=== PATIENT | male | born 1975 | race Caucasian/White ===

== ENCOUNTER 2021-03-15 16:01 | Outpatient (REF) | payer BC, SELFPAY ==
[2021-03-20 16:36] LABS: Testosterone, Free 49.4 pg/mL (35.0-155.0); Testosterone, Total 402 ng/dL (250-1100)
== END 2021-03-15 16:02 | disposition home or self-care (01) ==
LOC: HO.LAB 16:01
PROVIDERS: PCP Internal Medicine; Visit Provider Internal Medicine
DX: E34.9 Endocrine disorder, unspecified (principal)
CPT/HCPCS: 36415; 84402; 84403

== ENCOUNTER → 2021-03-24 15:12 | Outpatient (BNVA) | payer BC, SELFPAY | PROVIDERS: PCP Nurse Practitioner Family; Visit Provider Urology ==

== ENCOUNTER 2021-07-27 06:12 | Outpatient (REF) | payer BC, SELFPAY ==
[2021-07-27 11:53] LABS: Appearance Urine CLEAR; Color Urine YELLOW; Glucose Urine UA NEG (NEG); Leukocyte Esterase Urine NEG (NEG); Nitrite Urine NEG (NEG); Specific Gravity - Urine 1.025 (1.005-1.025); Urine Blood NEG (NEG); Urine Ketones NEG (NEG); Urine Protein NEG (NEG-TRACE)
[2021-07-27 12:08] LABS: Alanine Aminotransferase 32 U/L (0-40); Albumin Level 4.2 g/dL (3.5-5.0); Alkaline Phosphatase 91 U/L (39-117); Anion Gap 11 (12-20); Aspartate Amino Transferase 26 U/L (5-37); Bilirubin Total 0.4 mg/dL (0.0-1.0); Blood Urea Nitrogen 8 mg/dL (9-16); Calcium 8.6 mg/dL (8.4-10.2); Carbon Dioxide 24 mmol/L (22-29); Chloride 109 mmol/L (96-108); Cholesterol 130 mg/dL; Estimated Glomerular Filt Rate > 60; Glucose Fasting 90 mg/dL (60-99); HDL Cholesterol 41 mg/dL; LDL Cholesterol Calculated 75 mg/dl; Potassium 4.1 mmol/L (3.3-5.1); Sodium 140 mmol/L (135-145); Total Protein 6.4 g/dL (6.5-8.0); Triglycerides 71 mg/dL
[2021-07-27 12:13] LABS: TSH reflex Free T4 1.77 uIU/mL (0.32-4.0)
[2021-07-30 14:27] LABS: Testosterone, Total 456 ng/dL (250-1100)
== END 2021-07-27 06:13 | disposition home or self-care (01) ==
LOC: HO.HMGCLDS 06:12
PROVIDERS: Urology; PCP Nurse Practitioner Family; Visit Provider Nurse Practitioner Family
DX: Z00.00 Encounter for general adult medical examination without abnormal findings (principal); E11.9 Type 2 diabetes mellitus without complications; E29.1 Testicular hypofunction
CPT/HCPCS: 36415; 80053; 80061; 81003; 84403; 84443

== ENCOUNTER → 2021-09-23 15:00 | Outpatient (BNVA) | payer BC, SELFPAY | PROVIDERS: PCP Nurse Practitioner Family; Visit Provider Urology ==

== ENCOUNTER → 2021-09-30 11:27 | Outpatient (BNVA) | payer BC, SELFPAY | PROVIDERS: PCP Nurse Practitioner Family; Visit Provider Nurse Practitioner Psychiatric/Mental Health | DX: F11.20 Opioid dependence, uncomplicated (principal) | CPT/HCPCS: 80305 ==

== ENCOUNTER → 2021-10-14 15:15 | Outpatient (BNVA) | payer BC, SELFPAY | PROVIDERS: PCP Nurse Practitioner Family; Visit Provider Nurse Practitioner Psychiatric/Mental Health | DX: F11.20 Opioid dependence, uncomplicated (principal); E66.9 Obesity, unspecified; Z68.30 Body mass index [BMI] 30.0-30.9, adult; F17.210 Nicotine dependence, cigarettes, uncomplicated | CPT/HCPCS: 80305 ==

== ENCOUNTER → 2021-10-28 16:29 | Outpatient (BNVA) | payer BC, SELFPAY | PROVIDERS: Visit Provider Nurse Practitioner Psychiatric/Mental Health | DX: Z13.89 Encounter for screening for other disorder (principal) ==

== ENCOUNTER 2021-11-09 06:09 | Outpatient (REF) | payer BC, SELFPAY ==
[2021-11-09 11:33] LABS: Appearance Urine CLEAR; Color Urine STRAW; Glucose Urine UA NEG (NEG); Leukocyte Esterase Urine NEG (NEG); Nitrite Urine NEG (NEG); Specific Gravity - Urine <= 1.005 (1.005-1.025); Urine Blood NEG (NEG); Urine Ketones NEG (NEG); Urine Protein NEG (NEG-TRACE)
[2021-11-09 11:44] LABS: Hematocrit 46.1 % (42.0-52.0); Hemoglobin 15.3 g/dl (14.0-18.0); Mean Corpuscular HGB Conc 33.2 g/dl (31.0-36.0); Mean Corpuscular Hemoglobin 29.9 pg (27.0-33.0); Mean Platelet Volume 10.6 fL (9.4-12.4); Platelet Count 254 X10*3/uL (160-400); Red Blood Count 5.12 X10*6/uL (4.60-5.80); Red Cell Distribution Width 12.3 % (11.0-16.0); White Blood Count 4.5 X10*3/uL (4.8-10.8)
[2021-11-09 12:11] LABS: TSH reflex Free T4 1.95 uIU/mL (0.32-4.0)
[2021-11-09 12:15] LABS: Alanine Aminotransferase 32 U/L (0-40); Albumin Level 4.3 g/dL (3.5-5.0); Alkaline Phosphatase 75 U/L (39-117); Anion Gap 9 (12-20); Aspartate Amino Transferase 18 U/L (5-37); Bilirubin Total 0.6 mg/dL (0.0-1.0); Blood Urea Nitrogen 8 mg/dL (9-16); Carbon Dioxide 29 mmol/L (22-29); Chloride 110 mmol/L (96-108); Cholesterol 105 mg/dL; Estimated Glomerular Filt Rate > 60; Glucose Fasting 96 mg/dL (60-99); HDL Cholesterol 38 mg/dL; LDL Cholesterol Calculated 58 mg/dl; Potassium 4.5 mmol/L (3.3-5.1); Sodium 143 mmol/L (135-145); Total Protein 6.2 g/dL (6.5-8.0); Triglycerides 45 mg/dL
[2021-11-09 12:17] LABS: Prostate Specific Antigen 0.91 ng/mL (<0.05-4.0)
[2021-11-15 08:51] LABS: Testosterone, Total 781 ng/dL (250-1100)
== END 2021-11-09 06:10 | disposition home or self-care (01) ==
LOC: HO.HMGCLDS 06:09
PROVIDERS: PCP Nurse Practitioner Family; Visit Provider Urology
DX: Z12.5 Encounter for screening for malignant neoplasm of prostate (principal); E29.1 Testicular hypofunction; F11.20 Opioid dependence, uncomplicated; F41.8 Other specified anxiety disorders
CPT/HCPCS: 36415; 80053; 80061; 81003; 84153; 84403; 84443; 85027

== ENCOUNTER → 2021-11-11 10:49 | Outpatient (BNVA) | payer BC, SELFPAY | PROVIDERS: Visit Provider Nurse Practitioner Psychiatric/Mental Health | DX: Z13.89 Encounter for screening for other disorder (principal) ==

== ENCOUNTER → 2021-12-09 16:02 | Outpatient (BNVA) | payer BC, SELFPAY | PROVIDERS: PCP Nurse Practitioner Family; Visit Provider Nurse Practitioner Psychiatric/Mental Health | DX: Z13.89 Encounter for screening for other disorder (principal) ==

== ENCOUNTER → 2022-02-03 15:52 | Outpatient (BNVA) | payer BC, SELFPAY | PROVIDERS: PCP Nurse Practitioner Family; Visit Provider Nurse Practitioner Psychiatric/Mental Health | DX: Z51.81 Encounter for therapeutic drug level monitoring (principal); F11.20 Opioid dependence, uncomplicated | CPT/HCPCS: 80305 ==

== ENCOUNTER 2022-03-25 12:32 | Outpatient (REF) | payer BC, SELFPAY ==
[2022-03-25 13:16] LABS: Hematocrit 46.1 % (42.0-52.0); Hemoglobin 16.2 g/dl (14.0-18.0); Mean Corpuscular HGB Conc 35.1 g/dl (31.0-36.0); Mean Corpuscular Hemoglobin 29.9 pg (27.0-33.0); Mean Corpuscular Volume 85.1 fL (80.0-98.0); Mean Platelet Volume 10.3 fL (9.4-12.4); Platelet Count 269 X10*3/uL (160-400); Red Blood Count 5.42 X10*6/uL (4.60-5.80); Red Cell Distribution Width 12.1 % (11.0-16.0)
[2022-03-25 14:15] LABS: Prostate Specific Antigen 1.29 ng/mL (<0.05-4.0)
[2022-03-29 21:57] LABS: Testosterone, Total 865 ng/dL (250-1100)
== END 2022-03-25 12:33 | disposition home or self-care (01) ==
LOC: HO.LAB 12:32
PROVIDERS: PCP Nurse Practitioner Family; Visit Provider Urology
DX: E29.1 Testicular hypofunction (principal); Z12.5 Encounter for screening for malignant neoplasm of prostate
CPT/HCPCS: 36415; 84153; 84403; 85027

== ENCOUNTER 2022-04-07 15:34 | Outpatient (AMB) | payer BC, SELFPAY ==
--- NOTE | 2022-04-07 15:37 | A.OFFVIS_ITS ---
Intake Intake Visit Reasons: 6 mth follow up with labs (SET) Intake Note: Patient is present for labs follow up Data Systems Manager Required: No Accompanied by: Self / Same As Patient Allergies No Known Allergies Allergy (Verified 09/21/23 17:08) Medication List - Last Reconciled 04/07/22 by Jorge A Benoit MD buprenorphine-naloxone 2-0.5 mg (Suboxone) 1 film buccal DAILY buprenorphine-naloxone 8-2 mg (Suboxone) 1 film sublingual DAILY clonazepam 1 mg PO DAILY PRN 30 days insulin syringe-needle U-100 (BD Insulin Syringe) As directed needle (disp) 22 G (BD Regular Bevel [place]) As directed needle (disp) 25 gauge (BD Regular Bevel [place]) As directed - for testosterone subcutaneous injection syringe (disposable) (BD Luer-Alejandra Syringe) Testosterone injection weekly testosterone cypionate 100 mg (0.5 mL) subcut QWEEK 28 days HPI HPI Comments History of Present Illness Details Anish is a pleasant male. He is a patient of Dr Dias. He is seen for the following urologic conditions - hypogonadism Telemedicine evaluation Doximity adryan 15 minute consultation Had switched to subcutaneous testosterone Last lab value at appropriate target Continue to use weekly Check labs in 6 months Hypogonadism Longstanding - resume secondary to oral pain medication usage Insurance will not cover AndRosemary Has been using a testosterone IM every 2 weeks Discussed switching to subcutaneous every week to normalize values - aim for weekly subcu He would like to do this Prescription provided Laboratories - T 400, 08/03 T 456 , 04/04 T 800 1.3 46 Follow-up in 6 months with labs [facility] Medical History Adrenal adenoma History of arthroplasty of finger (~2016) Hypotestosteronism Obesity (BMI 30-39.9) Osteoarthritis Smoker Surgical History H/O arthroscopy of left knee (~2010) History of total adrenalectomy Family History Father No problems noted. Mother No problems noted. 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 Cognitive needs: No Hearing needs: No Vision needs: No Review of Systems Const All systems reviewed & are unremarkable except as noted in HPI and below Reports no additional complaints Resp Reports no additional complaints GI Reports no additional complaints Reports as per HPI Musc Reports no additional complaints Physical Exam Telemedicine evaluation Appropriate responses Regular breathing rate and rhythm HEENT Head: Yes normal to inspection Ears: hearing grossly normal bilaterally Eyes General: appearance normal, both eyes and all related structures Neck Neck: Yes normal visual inspection Chest Chest palpation & inspection: normal inspection of the chest Resp Effort & Inspection: normal respiratory effort and able to speak in complete sentences Assessment & Plan Assessment & Plan (1) Hypogonadism in male: Code(s): E29.1 - Testicular hypofunction Plan Six-month follow-up Orders: Orders Testosterone, Total 6 Months E29.1 - Testicular hypofunction Prostate Specific Antigen 6 Months E29.1 - Testicular hypofunction Hematocrit 6 Months E29.1 - Testicular hypofunction Patient Instructions: Imaging studies, laboratory and physical exam results were discussed and reviewed in detail. No major barriers to patient understanding were identified. An opportunity to ask questions regarding the treatment plan was provided. All questions were answered. The patient expressed understanding and agreement with the above treatment plan. The patient is aware they should contact our office by phone for worsening of their current condition or the appearance of new urologic symptoms. Compliance is encouraged with any medications and followup testing that is ordered. It is a privilege to participate in the urologic care of your patient. If you have any questions or concerns regarding treatment for the above conditions, or other urologic issues, please do not hesitate to contact me. The office telephone contact is [phone]. This note is constructed using voice recognition software. While every effort has been made to ensure accuracy connie scratcher errors may have been included. Yours sincerely, Dr Jorge A Benoit MD, [facility] - Urology Providers of Expert, Compassionate Care for the Genitourinary System Telehealth Telehealth Location of provider rendering services: practice address Location of patient: address on file Patient Identification confirmed using: Name, : Yes Telehealth method: voice only Patient verbally consented to treatment: Yes Patient verbally consented to billing insurance company: Yes Patient informed of any privacy concerns related to visit: Yes Coding Level of Care Code Tele Est Pt Level 3 (21648) Diagnoses Hypogonadism in male E29.1
== END 2022-04-07 15:51 | disposition home or self-care (01) ==
LOC: HO.HUSH 15:34
PROVIDERS: PCP Nurse Practitioner Family; Visit Provider Urology
DX: E29.1 Testicular hypofunction (principal)
CPT/HCPCS: 99499

== ENCOUNTER → 2022-05-26 08:59 | Outpatient (BNVA) | payer BC, SELFPAY | PROVIDERS: PCP Nurse Practitioner Family; Visit Provider Nurse Practitioner Psychiatric/Mental Health | DX: Z51.81 Encounter for therapeutic drug level monitoring (principal); F11.20 Opioid dependence, uncomplicated | CPT/HCPCS: 80305 ==

== ENCOUNTER → 2022-06-30 09:00 | Outpatient (BNVA) | payer BC, SELFPAY | PROVIDERS: PCP Nurse Practitioner Family; Visit Provider Nurse Practitioner Psychiatric/Mental Health | DX: F11.288 Opioid dependence with other opioid-induced disorder (principal); F17.210 Nicotine dependence, cigarettes, uncomplicated; Z51.81 Encounter for therapeutic drug level monitoring | CPT/HCPCS: 80305 ==

== ENCOUNTER → 2022-08-11 09:03 | Outpatient (BNVA) | payer BC, SELFPAY | PROVIDERS: PCP Nurse Practitioner Family; Visit Provider Nurse Practitioner Psychiatric/Mental Health | DX: F11.20 Opioid dependence, uncomplicated (principal) ==

== ENCOUNTER → 2022-08-31 09:00 | Outpatient (BNVA) | payer BC, SELFPAY | PROVIDERS: PCP Nurse Practitioner Family; Visit Provider Nurse Practitioner Psychiatric/Mental Health | DX: Z13.89 Encounter for screening for other disorder (principal) ==

== ENCOUNTER 2022-10-12 08:53 | Outpatient (REF) | payer BC, SELFPAY ==
[2022-10-12 09:44] LABS: MANUAL DIFF FLAG NO
[2022-10-12 10:46] LABS: Basophils Percent Auto 0.3 % (0-2); Hematocrit 45.2 % (42.0-52.0); Hemoglobin 15.9 g/dl (14.0-18.0); Imm Gran Abs Auto 0.02 X10*3/uL (0.00-0.03); Imm Gran Pct Auto 0.3 % (0.0-0.4); Lymphocytes Percent Auto 17.1 % (20-40); Mean Corpuscular HGB Conc 35.2 g/dl (31.0-36.0); Mean Corpuscular Hemoglobin 29.4 pg (27.0-33.0); Mean Corpuscular Volume 83.5 fL (80.0-98.0); Mean Platelet Volume 10.7 fL (9.4-12.4); Monocytes Absolute Auto 0.4 X10*3/uL (0.1-1.2); Monocytes Percent Auto 6.2 % (2-11); Neutrophils Absolute Auto 4.4 x10*3/uL (2.0-8.3); Neutrophils Percent Auto 76.1 % (45-73); Platelet Count 245 X10*3/uL (160-400); Red Blood Count 5.41 X10*6/uL (4.60-5.80); Red Cell Distribution Width 12.1 % (11.0-16.0); White Blood Count 5.8 X10*3/uL (4.8-10.8)
[2022-10-12 10:47] LABS: Appearance Urine Clear; Color Urine Yellow; Glucose Urine UA Negative (Negative); Leukocyte Esterase Urine Negative (Negative); Nitrite Urine Negative (Negative); Specific Gravity - Urine <= 1.005 (1.005-1.025); Urine Blood Negative (Negative); Urine Ketones Negative (Negative); Urine Protein Negative (Neg-Trace)
[2022-10-12 11:47] LABS: TSH reflex Free T4 1.37 uIU/mL (0.32-4.0)
[2022-10-12 12:05] LABS: Alanine Aminotransferase 31 U/L (0-40); Albumin Level 4.5 g/dL (3.5-5.0); Alkaline Phosphatase 86 U/L (39-117); Anion Gap 12 (12-20); Aspartate Amino Transferase 22 U/L (5-37); Bilirubin Total 0.5 mg/dL (0.0-1.0); Blood Urea Nitrogen 14 mg/dL (9-16); Calcium 9.2 mg/dL (8.4-10.2); Carbon Dioxide 24 mmol/L (22-29); Chloride 110 mmol/L (96-108); Cholesterol 137 mg/dL; Estimated Glomerular Filt Rate > 60; Glucose Fasting 100 mg/dL (60-99); HDL Cholesterol 45 mg/dL; LDL Cholesterol Calculated 85 mg/dl; Potassium 4.6 mmol/L (3.3-5.1); Sodium 141 mmol/L (135-145); Total Protein 6.7 g/dL (6.5-8.0); Triglycerides 37 mg/dL
[2022-10-12 12:12] LABS: Prostate Specific Antigen 0.88 ng/mL (<0.05-4.0)
[2022-10-18 18:18] LABS: Testosterone, Total 602 ng/dL (250-1100)
== END 2022-10-12 08:54 | disposition home or self-care (01) ==
LOC: HO.LAB 08:53
PROVIDERS: PCP Nurse Practitioner Family; Visit Provider Urology
DX: E29.1 Testicular hypofunction (principal); F41.9 Anxiety disorder, unspecified; F11.20 Opioid dependence, uncomplicated; Z51.81 Encounter for therapeutic drug level monitoring; Z12.5 Encounter for screening for malignant neoplasm of prostate; E78.5 Hyperlipidemia, unspecified
CPT/HCPCS: 36415; 80053; 80061; 80305; 81003; 84153; 84403; 84443; 85025

== ENCOUNTER → 2022-11-10 11:40 | Outpatient (BNVA) | payer BC, SELFPAY | PROVIDERS: PCP Nurse Practitioner Family; Visit Provider Urology | DX: Z13.89 Encounter for screening for other disorder (principal) ==

== ENCOUNTER → 2022-11-18 16:08 | Outpatient (BNVA) | payer BC, SELFPAY | PROVIDERS: PCP Nurse Practitioner Family; Visit Provider Nurse Practitioner Family | DX: Z13.89 Encounter for screening for other disorder (principal) ==

== ENCOUNTER → 2022-12-07 09:01 | Outpatient (BNVA) | payer BC, SELFPAY | PROVIDERS: PCP Nurse Practitioner Family; Visit Provider Nurse Practitioner Psychiatric/Mental Health | DX: Z51.81 Encounter for therapeutic drug level monitoring (principal) ==

== ENCOUNTER → 2023-01-31 09:06 | Outpatient (BNVA) | payer BC, SELFPAY | PROVIDERS: PCP Nurse Practitioner Family; Visit Provider Nurse Practitioner Psychiatric/Mental Health | DX: Z51.81 Encounter for therapeutic drug level monitoring (principal); F11.20 Opioid dependence, uncomplicated | CPT/HCPCS: 80305 ==

== ENCOUNTER 2023-03-27 09:09 | Outpatient (AMB) | payer BC, SELFPAY ==
--- NOTE | 2023-03-27 09:10 | A.OFFVIS_ITS ---
Intake Vital Signs 03/27/23 09:19 BP 136/84 Blood Pressure Location Lt radial Position Sitting Pulse 104 H Pulse Source Pulse Oximeter Pulse Oximetry (%) 95 Oxygen Delivery Method Room Air Comment had 5 hr energy drink Intake Visit Reasons: MAT Visit Intake Note: the patient presents for a mat visit United [place] Attorney Required: No Allergies No Known Allergies Allergy (Verified 03/27/23 09:20) Do you need a note to return to daycare/school/sports/work: No HPI MAT Visit HPI Details Patient presents for treatment follow up Caffeine intake at last visit was reported at 1000mg daily Reports he has reduced to about 700mg. Cut out one 5 hour energy drink and decreased by one scoop in energy drinks. In terms of suboxone reports he has been cutting down the film--does not feel he has been on more than 8mg. Would like next rx to be for 8mg PFSH Medical History Adrenal adenoma History of arthroplasty of finger (~2016) Hypotestosteronism Obesity (BMI 30-39.9) Osteoarthritis Smoker Surgical History H/O arthroscopy of left knee (~2010) History of total adrenalectomy Family History Father No problems noted. Mother No problems noted. 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 Cognitive needs: No Hearing needs: No Vision needs: No Review of Systems Const Reports as per HPI and Reports no additional complaints Physical Exam Vital Signs: Last Vital Signs Pulse 104 H 03/27/23 09:19 BP 136/84 03/27/23 09:19 Pulse Ox 95 03/27/23 09:19 Oxygen Delivery Method Room Air 03/27/23 09:19 Const General: cooperative, healthy appearing, no acute distress and well groomed Psych Thought process: Normal thought process present Thought content: Normal thought content present Insight: Good insight present (Psych) Results AMB 14 Panel Urine Drug Screen Urine Marijuana (THC) Negative Last Edit by Marline Sharma CMA on 03/27/23 09:22 Urine Cocaine Negative Last Edit by Marline Sharma CMA on 03/27/23 09:22 Urine Morphine Negative Last Edit by Marline Sharma CMA on 03/27/23 09:22 Urine Methamphetamine Negative Last Edit by Marline Sharma CMA on 03/27/23 09:22 Urine Amphetamine Negative Last Edit by Marline Sharma CMA on 03/27/23 09:2 2 Urine Benzodiazepine Negative Last Edit by Marline Sharma CMA on 03/27/23 09:22 Urine Barbiturates Negative Last Edit by Marline Sahrma CMA on 03/27/23 09: 22 Urine Methadone Negative Last Edit by Marline Sharma CMA on 03/27/23 09:22 Urine Buprenorphine Positive Last Edit by Marline Sharma CMA on 03/27/23 09 :22 Urine Tricyclic Antidepressant Negative Last Edit by Marline Sharma CMA on 03/27/23 09:22 Urine MDMA Negative Last Edit by Marline Sharma CMA on 03/27/23 09:22 Urine Oxycodone Negative Last Edit by Marline Sharma CMA on 03/27/23 09:22 Urine Phencyclidine Negative Last Edit by Marline Sharma CMA on 03/27/23 09 :22 Urine Propoxyphene Negative Last Edit by Marline Sharma CMA on 03/27/23 09: 22 Results Reviewed Results Reviewed: Laboratory Last Values POC Urine Buprenorphine Positive 03/27/23 09:21 POC Urine Morphine Negative 03/27/23 09:21 POC Urine Oxycodone Negative 03/27/23 09:21 POC Urine Methadone Negative 03/27/23 09:21 POC Urine Propoxyphene Negative 03/27/23 09:21 POC Urine Barbiturates Negative 03/27/23 09:21 POC U Tricyclic Antidpr Negative 03/27/23 09:21 POC Urine PCP Negative 03/27/23 09:21 POC Ur Amphetamines Negative 03/27/23 09:21 POC Ur Methamphetamine Negative 03/27/23 09:21 POC Urine MDMA Negative 03/27/23 09:21 POC Ur Benzodiazepine Negative 03/27/23 09:21 POC Urine Cocaine Negative 03/27/23 09:21 POC Ur Marijuana (THC) Negative 03/27/23 09:21 Assessment & Plan Assessment & Plan (1) Opioid dependence: Code(s): F11.20 - Opioid dependence, uncomplicated Plan: * suboxone dose decreased to 8mg QD * risk reduction discussion related to ongoing caffeine and phenibut use. Goal is to continue decreasing. * follow up 2 months via telehealth Orders: Orders AMB 14 Panel Urine Drug Screen Today Z51.81 - Encounter for therapeutic drug level monitoring Coding Level of Care Code Est Pt Level 4 (62059) Diagnoses Opioid dependence F11.20
[2023-03-27 09:19] VITALS: BP 136/84; PULSE 104; O2SAT 95
== END 2023-03-27 09:52 | disposition home or self-care (01) ==
LOC: HO.HCC 09:09
PROVIDERS: PCP Nurse Practitioner Family; Visit Provider Nurse Practitioner Psychiatric/Mental Health
DX: F11.20 Opioid dependence, uncomplicated (principal); Z51.81 Encounter for therapeutic drug level monitoring
CPT/HCPCS: 99214

== ENCOUNTER → 2023-03-27 09:09 | Outpatient (BNVA) | payer BC, SELFPAY | PROVIDERS: PCP Nurse Practitioner Family; Visit Provider Nurse Practitioner Psychiatric/Mental Health | DX: F11.20 Opioid dependence, uncomplicated (principal); Z51.81 Encounter for therapeutic drug level monitoring; Z79.899 Other long term (current) drug therapy | CPT/HCPCS: 80305 ==

== ENCOUNTER 2023-04-24 16:50 | Outpatient (REF) | payer BC, SELFPAY ==
[2023-04-24 17:25] LABS: Hematocrit 47.8 % (42.0-52.0); Hemoglobin 16.2 g/dl (14.0-18.0); Mean Corpuscular HGB Conc 33.9 g/dl (31.0-36.0); Mean Corpuscular Hemoglobin 29.8 pg (27.0-33.0); Mean Platelet Volume 10.7 fL (9.4-12.4); Platelet Count 283 X10*3/uL (160-400); Red Blood Count 5.43 X10*6/uL (4.60-5.80); Red Cell Distribution Width 12.6 % (11.0-16.0); White Blood Count 8.1 X10*3/uL (4.8-10.8)
[2023-04-24 18:09] LABS: Prostate Specific Antigen 1.26 ng/mL (<0.05-4.0)
[2023-04-29 15:43] LABS: Testosterone, Total 539 ng/dL (250-1100)
== END 2023-04-24 16:51 | disposition home or self-care (01) ==
LOC: HO.LAB 16:50
PROVIDERS: PCP Nurse Practitioner Family; Visit Provider Urology
DX: E29.1 Testicular hypofunction (principal); Z12.5 Encounter for screening for malignant neoplasm of prostate
CPT/HCPCS: 36415; 84153; 84403; 85027

== ENCOUNTER 2023-05-03 15:29 | Outpatient (AMB) | payer BC, SELFPAY ==
--- NOTE | 2023-05-03 15:36 | MHC.OFFVIS ---
Intake Intake Visit Reasons: 6M PSA/CBC/Testosterone(set) Intake Note: Patient is present for Follow Up Urology Med: Testosterone Antibiotic Allergy: None Blood Thinner: None [facility]acy: [facility] Allergies No Known Allergies Allergy (Verified 03/27/23 09:20) HPI HPI Comments History of Present Illness Details Anish is a pleasant male. He is a patient of Dr Dias. He is seen for the following urologic conditions - hypogonadism Weekly injections Target testosterone appropriate Continue therapy Hypogonadism Current dose would 100 mg testosterone weekly subcutaneous Longstanding - presume secondary to oral pain medication usage Insurance will not cover AndroGel Previously used testosterone IM every 2 weeks Laboratories - T 400, 08/03 T 456 , 04/04 T 800 1.3 46, 11/03 T 600 P 0.9 H 45, 05/06 T 540 P 1.3 H 47.8 Follow-up in 6 months with labs PFSH Medical History Adrenal adenoma History of arthroplasty of finger (~2016) Hypotestosteronism Obesity (BMI 30-39.9) Osteoarthritis Smoker Surgical History H/O arthroscopy of left knee (~2010) History of total adrenalectomy Family History Father No problems noted. Mother No problems noted. 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 Cognitive needs: No Hearing needs: No Vision needs: No Review of Systems Const Denies chills and Denies fever(s) Card Reports no additional complaints and Denies syncope Resp Denies cough GI Denies abdominal pain and Denies heartburn Reports as per HPI and Denies change in libido Neuro Denies syncope Psych Denies change in libido Endo Denies change in libido Physical Exam Const General: cooperative, healthy appearing, comfortable and no acute distress Orientation/consciousness: patient oriented x3 HEENT Face and sinus: Yes normal facial exam Mouth: moist mucous membranes Neck Neck: Yes normal visual inspection, Yes full ROM and Yes trachea midline Chest Chest palpation & inspection: normal inspection of the chest Resp Effort & Inspection: normal respiratory effort, able to speak in complete sentences and no respiratory distress GI Inspection: Yes normal to inspection Back/Spine/Pelvis Cervical Spine: normal cervical lordosis Thoracic/Lumbar Spine: thoracic and lumbar spine normal to inspection Skin General skin exam: no rashes or lesions noted Neuro General: patient oriented x3, gait normal, tone normal and moves all extremities Extrem General: Yes normal to inspection and Yes capillary refill normal Assessment & Plan Assessment & Plan (1) Hypogonadism in male: Code(s): E29.1 - Testicular hypofunction Plan Continue q.6 months surveillance labs Patient Instructions: Imaging studies, laboratory and physical exam results were discussed and reviewed in detail. No major barriers to patient understanding were identified. An opportunity to ask questions regarding the treatment plan was provided. All questions were answered. The patient expressed understanding and agreement with the above treatment plan. The patient is aware they should contact our office by phone for worsening of their current condition or the appearance of new urologic symptoms. Compliance is encouraged with any medications and followup testing that is ordered. It is a privilege to participate in the urologic care of your patient. If you have any questions or concerns regarding treatment for the above conditions, or other urologic issues, please do not hesitate to contact me. The office telephone contact is [phone]. This note is constructed using voice recognition software. While every effort has been made to ensure accuracy web design specialist errors may have been included. Yours sincerely, Dr Jorge A Benoit MD, [facility] - Urology Providers of Expert, Compassionate Care for the Genitourinary System Coding Level of Care Code Est Pt Level 3 (73916) Diagnoses Hypogonadism in male E29.1
== END 2023-05-03 16:04 | disposition home or self-care (01) ==
PROVIDERS: PCP Nurse Practitioner Family; Visit Provider Urology
DX: E29.1 Testicular hypofunction (principal)
CPT/HCPCS: 99213

== ENCOUNTER → 2023-05-03 15:29 | Outpatient (BNVA) | payer BC, SELFPAY | PROVIDERS: Visit Provider Urology ==

== ENCOUNTER 2023-05-19 09:10 | Outpatient (AMB) | payer BC, SELFPAY ==
--- NOTE | 2023-05-19 09:11 | MHC.AM.SUB ---
Intake Intake Visit Reasons: MAT Visit Allergies No Known Allergies Allergy (Verified 03/27/23 09:20) HPI MAT Visit HPI Details Patient presents for telehealth Doing well with recovery Tolerating current dose of 10mg reporting he has decreased caffeine use significantly traveling today--will be out of 8mg films while he is away [facility] Medical History Adrenal adenoma History of arthroplasty of finger (~2016) Hypotestosteronism Obesity (BMI 30-39.9) Osteoarthritis Smoker Surgical History H/O arthroscopy of left knee (~2010) History of total adrenalectomy Family History Father No problems noted. Mother No problems noted. 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 Cognitive needs: No Hearing needs: No Vision needs: No Review of Systems Const Reports as per HPI and Reports no additional complaints Assessment & Plan Assessment & Plan (1) Opioid dependence: Code(s): F11.20 - Opioid dependence, uncomplicated Qualifiers: Substance use status: uncomplicated Qualified Code(s): F11.20 - Opioid dependence, uncomplicated Plan: continue suboxone at current dose follow up 2 months early refill sent in for 8mg films to accommodate for travel Medications: Refilled buprenorphine-naloxone 8-2 mg (Suboxone) 1 film sublingual DAILY 30 ea 1RF Telehealth Telehealth Location of provider rendering services: practice address Location of patient: other Patient Identification confirmed using: Name, : Yes Telehealth method: voice only Patient verbally consented to treatment: Yes Patient verbally consented to billing insurance company: Yes Coding Level of Care Code Est Pt Level 3 (96597) Diagnoses Uncomplicated opioid dependence F11.20 Substance use status: uncomplicated
== END 2023-05-19 11:06 | disposition home or self-care (01) ==
LOC: HO.HCC 09:10
PROVIDERS: PCP Nurse Practitioner Family; Visit Provider Nurse Practitioner Psychiatric/Mental Health
DX: F11.20 Opioid dependence, uncomplicated (principal)
CPT/HCPCS: 99213

== ENCOUNTER → 2023-05-19 09:10 | Outpatient (BNVA) | payer BC, SELFPAY | PROVIDERS: PCP Nurse Practitioner Family; Visit Provider Nurse Practitioner Psychiatric/Mental Health | DX: Z51.81 Encounter for therapeutic drug level monitoring (principal) ==

== ENCOUNTER 2023-07-28 09:32 | Outpatient (AMB) | payer BC, SELFPAY ==
--- NOTE | 2023-07-28 09:00 | A.OFFVIS_ITS ---
Intake Intake Visit Reasons: mat visit Allergies No Known Allergies Allergy (Verified 03/27/23 09:20) HPI mat visit HPI Details Patient presents via telehealth for follow up Currently prescribed suboxone 10mg QD No issues related to medication no questions or concerns at this time [facility] Medical History Adrenal adenoma History of arthroplasty of finger (~2016) Hypotestosteronism Obesity (BMI 30-39.9) Osteoarthritis Smoker Surgical History H/O arthroscopy of left knee (~2010) History of total adrenalectomy Family History Father No problems noted. Mother No problems noted. 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 Cognitive needs: No Hearing needs: No Vision needs: No Review of Systems Const Reports as per HPI and Reports no additional complaints Assessment & Plan Assessment & Plan (1) Opioid dependence: Code(s): F11.20 - Opioid dependence, uncomplicated Qualifiers: Substance use status: uncomplicated Qualified Code(s): F11.20 - Opioid dependence, uncomplicated Plan: * continue suboxone at current dose * follow up 2 months Medications: Refilled buprenorphine-naloxone 2-0.5 mg (Suboxone) to be taken in addition to 8mg daily--total of 10mg daily 1 film buccal DAILY 30 ea 1RF buprenorphine-naloxone 8-2 mg (Suboxone) 1 film sublingual DAILY 30 ea 1RF Telehealth Telehealth Location of provider rendering services: practice address Location of patient: address on file Patient Identification confirmed using: Name, : Yes Telehealth method: voice only Patient verbally consented to treatment: Yes Patient verbally consented to billing insurance company: Yes Coding Level of Care Code Tele Est Pt Level 3 (23482) Diagnoses Uncomplicated opioid dependence F11.20 Substance use status: uncomplicated Time Spent (min) 20
== END 2023-07-28 09:34 | disposition home or self-care (01) ==
LOC: HO.HCC 09:32
PROVIDERS: PCP Nurse Practitioner Family; Visit Provider Nurse Practitioner Psychiatric/Mental Health
DX: F11.20 Opioid dependence, uncomplicated (principal)
CPT/HCPCS: 99442

== ENCOUNTER → 2023-07-28 09:32 | Outpatient (BNVA) | payer BC, SELFPAY | PROVIDERS: PCP Nurse Practitioner Family; Visit Provider Nurse Practitioner Psychiatric/Mental Health | DX: F11.20 Opioid dependence, uncomplicated (principal) ==

== ENCOUNTER 2023-09-21 17:02 | Outpatient (AMB) | payer BC, SELFPAY ==
[2023-09-21 17:07] VITALS: BP 132/84; PULSE 82; O2SAT 98
--- NOTE | 2023-09-21 17:07 | MHC.AM.SUB ---
Intake Vital Signs 09/21/23 17:07 BP 132/84 Blood Pressure Location Lt radial Pulse 82 Pulse Source Pulse Oximeter Pulse Oximetry (%) 98 Oxygen Delivery Method Room Air Intake Visit Reasons: mat visit Intake Note: the patient presents for a mat visit Rivet Tapping Machine Operator Required: No Allergies No Known Allergies Allergy (Verified 09/21/23 17:08) Do you need a note to return to daycare/school/sports/work: No HPI mat visit HPI Details Pt presents for MAT appointment Reports he feels well, no concerns for recovery at this time Feels his dose is adequate, has no concerns for side effects Wishes to taper suboxone dose at some point, but does not feel he is ready yet [facility] Medical History Adrenal adenoma History of arthroplasty of finger (~2016) Hypotestosteronism Obesity (BMI 30-39.9) Osteoarthritis Smoker Surgical History H/O arthroscopy of left knee (~2010) History of total adrenalectomy Family History Father No problems noted. Mother No problems noted. 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 Cognitive needs: No Hearing needs: No Vision needs: No Review of Systems Const Reports as per HPI Physical Exam Vital Signs: Last Vital Signs Pulse 82 09/21/23 17:07 BP 132/84 09/21/23 17:07 Pulse Ox 98 09/21/23 17:07 Oxygen Delivery Method Room Air 09/21/23 17:07 Const General: cooperative and healthy appearing Resp Effort & Inspection: normal respiratory effort Psych Appearance: grossly normal Mental Status: mental status grossly normal Speech and movement: Normal speech and movement present Affect: normal affect Attitude: cooperative Insight: Good insight present (Psych) Judgement: Good judgement present (Psych) Assessment & Plan Assessment & Plan (1) Opioid dependence: Code(s): F11.20 - Opioid dependence, uncomplicated Qualifiers: Substance use status: uncomplicated Qualified Code(s): F11.20 - Opioid dependence, uncomplicated Plan: -Mass Pat reviewed -Continue suboxone at current dose -Follow up 2 months Medications: Refilled buprenorphine-naloxone 2-0.5 mg (Suboxone) to be taken in addition to 8mg daily--total of 10mg daily 1 film buccal DAILY 30 ea 1RF buprenorphine-naloxone 8-2 mg (Suboxone) 1 film sublingual DAILY 30 ea 1RF Coding Level of Care Code Est Pt Level 3 (61547) Diagnoses Uncomplicated opioid dependence F11.20 Substance use status: uncomplicated
== END 2023-09-21 17:23 | disposition home or self-care (01) ==
PROVIDERS: PCP Nurse Practitioner Family; Visit Provider Nurse Practitioner Family
DX: F11.20 Opioid dependence, uncomplicated (principal)
CPT/HCPCS: 99213

== ENCOUNTER → 2023-09-21 17:02 | Outpatient (BNVA) | payer BC, SELFPAY | PROVIDERS: PCP Nurse Practitioner Family; Visit Provider Nurse Practitioner Family | DX: F11.20 Opioid dependence, uncomplicated (principal) ==

== ENCOUNTER 2023-10-21 09:42 | Outpatient (REF) | payer BC, SELFPAY ==
[2023-10-21 09:56] LABS: MANUAL DIFF FLAG NO
[2023-10-21 10:17] LABS: Basophils Percent Auto 0.3 % (0-2); Eosinophils Percent Auto 0.1 % (0-4); Hematocrit 44.4 % (42.0-52.0); Hemoglobin 15.5 g/dl (14.0-18.0); Imm Gran Abs Auto 0.04 X10*3/uL (0.00-0.03); Imm Gran Pct Auto 0.4 % (0.0-0.4); Lymphocytes Absolute Auto 1.3 X10*3/uL (1.2-4.9); Lymphocytes Percent Auto 11.4 % (20-40); Mean Corpuscular HGB Conc 34.9 g/dl (31.0-36.0); Mean Corpuscular Hemoglobin 30.1 pg (27.0-33.0); Mean Corpuscular Volume 86.2 fL (80.0-98.0); Mean Platelet Volume 10.6 fL (9.4-12.4); Monocytes Absolute Auto 0.4 X10*3/uL (0.1-1.2); Neutrophils Absolute Auto 9.3 x10*3/uL (2.0-8.3); Neutrophils Percent Auto 83.8 % (45-73); Platelet Count 248 X10*3/uL (160-400); Red Blood Count 5.15 X10*6/uL (4.60-5.80); Red Cell Distribution Width 12.4 % (11.0-16.0)
[2023-10-21 10:33] LABS: Appearance Urine Clear; Color Urine Yellow; Glucose Urine UA Negative (Negative); Leukocyte Esterase Urine Negative (Negative); Nitrite Urine Negative (Negative); PH 6.5 (5.0-9.0); Specific Gravity - Urine <= 1.005 (1.005-1.025); Urine Blood Negative (Negative); Urine Ketones Negative (Negative); Urine Protein Negative (Neg-Trace)
[2023-10-21 11:39] LABS: Alanine Aminotransferase 31 U/L (0-40); Albumin Level 4.5 g/dL (3.5-5.0); Alkaline Phosphatase 84 U/L (39-117); Anion Gap 8 (12-20); Aspartate Amino Transferase 23 U/L (5-37); Bilirubin Total 0.6 mg/dL (0.0-1.0); Blood Urea Nitrogen 10 mg/dL (9-16); Calcium 9.3 mg/dL (8.4-10.2); Carbon Dioxide 25 mmol/L (22-29); Chloride 111 mmol/L (96-108); Cholesterol 122 mg/dL (<200); Estimated Glomerular Filt Rate > 60; Glucose Fasting 98 mg/dL (60-99); HDL Cholesterol 37 mg/dL (>40); LDL Cholesterol Calculated 75 mg/dL (<100); Potassium 4.4 mmol/L (3.3-5.1); Sodium 140 mmol/L (135-145); TSH reflex Free T4 0.75 uIU/mL (0.32-4.0); Total Protein 6.8 g/dL (6.5-8.0); Triglycerides 51 mg/dL (<150)
[2023-10-21 12:15] LABS: Prostate Specific Antigen 1.42 ng/mL (<0.05-4.0)
[2023-10-27 12:44] LABS: Testosterone, Free 49.8 pg/mL (35.0-155.0); Testosterone, Total 607 ng/dL (250-1100)
== END 2023-10-21 09:43 | disposition home or self-care (01) ==
LOC: HO.LAB 09:42
PROVIDERS: PCP Nurse Practitioner Family; Visit Provider Urology
DX: Z00.00 Encounter for general adult medical examination without abnormal findings (principal); Z12.5 Encounter for screening for malignant neoplasm of prostate; Z13.6 Encounter for screening for cardiovascular disorders; E29.1 Testicular hypofunction
CPT/HCPCS: 36415; 80053; 80061; 81003; 84153; 84402; 84403; 84443; 85025

== ENCOUNTER 2023-10-31 08:24 | Outpatient (AMB) | payer BC, SELFPAY ==
--- NOTE | 2023-10-31 08:26 | MHC.OFFVIS ---
Intake Intake Visit Reasons: 6M PSA/Testo(pending)Confirmed Intake Note: Patient is Present for Telephone Follow Up labs Urology Med: Testosterone Antibiotic Allergy: none Blood Thinner:None [facility]acy: [facility] Allergies No Known Allergies Allergy (Verified 10/31/23 08:27) Medication List - Last Reconciled 10/31/23 by Jorge A Benoit MD bisacodyl (Dulcolax (bisacodyl)) 10 mg (2 x 5 mg) PO ONCE 1 day buprenorphine-naloxone 2-0.5 mg (Suboxone) 1 film buccal DAILY buprenorphine-naloxone 8-2 mg (Suboxone) 1 film sublingual DAILY clonazepam 1 mg PO DAILY PRN insulin syringe-needle U-100 (BD Insulin Syringe) As directed needle (disp) 22 G (BD Regular Bevel [place]) As directed needle (disp) 25 gauge (BD Regular Bevel [place]) As directed - for testosterone subcutaneous injection polyethylene glycol 3350 (Miralax) 238 grams PO ONCE syringe (disposable) (BD Luer-Alejandra Syringe) Testosterone injection weekly testosterone cypionate 100 mg (0.5 mL) subcut QWEEK 28 days HPI HPI Comments History of Present Illness Details Anish is a pleasant male. He is a patient of Dr Dias. He is seen for the following urologic conditions - hypogonadism Weekly injections Target testosterone appropriate Continue therapy Hypogonadism Current dose would 100 mg testosterone weekly subcutaneous Longstanding - presume secondary to oral opioid medication usage Insurance will not cover AndroGel Previously used testosterone IM every 2 weeks Laboratories - T 400, 08/03 T 456 , 04/04 T 800 1.3 46, 11/03 T 600 P 0.9 H 45, 05/06 T 540 P 1.3 H 47.8, 11/04 607 1.4 44 Follow-up in 6 months with labs [facility] Medical History History of arthroplasty of finger (~2016) Obesity (BMI 30-39.9) Smoker Adrenal adenoma Osteoarthritis Hypotestosteronism Surgical History History of total adrenalectomy H/O arthroscopy of left knee (~2010) Family History Father No problems noted. Mother No problems noted. 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 Cognitive needs: No Hearing needs: No Vision needs: No Review of Systems Const All systems reviewed & are unremarkable except as noted in HPI and below Reports no additional complaints Resp Reports no additional complaints GI Reports no additional complaints Reports as per HPI Musc Reports no additional complaints Physical Exam Telemedicine evaluation Appropriate responses Regular breathing rate and rhythm HEENT Head: Yes normal to inspection Ears: hearing grossly normal bilaterally Eyes General: appearance normal, both eyes and all related structures Neck Neck: Yes normal visual inspection Chest Chest palpation & inspection: normal inspection of the chest Resp Effort & Inspection: normal respiratory effort and able to speak in complete sentences Assessment & Plan Assessment & Plan (1) Hypotestosteronism: Code(s): E34.9 - Endocrine disorder, unspecified Plan Six-month follow-up labs office Orders: Orders Prostate Specific Antigen 6 Months E29.1 - Testicular hypofunction Testosterone, Total 6 Months E29.1 - Testicular hypofunction Complete Blood Count no Diff 6 Months E29.1 - Testicular hypofunction Testosterone, Free/Total 10/21/23 E29.1 - Testicular hypofunction Prostate Specific Antigen 10/21/23 E29.1 - Testicular hypofunction Medications: Refilled testosterone cypionate dispose of excess testosterone after injection 100 mg (0.5 mL) subcut QWEEK 28 days 4 mL 5RF E29.1 - Testicular hypofunction Patient Instructions: Imaging studies, laboratory and physical exam results were discussed and reviewed in detail. No major barriers to patient understanding were identified. An opportunity to ask questions regarding the treatment plan was provided. All questions were answered. The patient expressed understanding and agreement with the above treatment plan. The patient is aware they should contact our office by phone for worsening of their current condition or the appearance of new urologic symptoms. Compliance is encouraged with any medications and followup testing that is ordered. It is a privilege to participate in the urologic care of your patient. If you have any questions or concerns regarding treatment for the above conditions, or other urologic issues, please do not hesitate to contact me. The office telephone contact is [phone]. This note is constructed using voice recognition software. While every effort has been made to ensure accuracy mobile application developer errors may have been included. Yours sincerely, Dr Jorge A Benoit MD, [facility] - Urology Providers of Expert, Compassionate Care for the Genitourinary System Telehealth Telehealth Location of provider rendering services: practice address Location of patient: address on file Patient Identification confirmed using: Name, : Yes Telehealth method: voice only Patient verbally consented to treatment: Yes Patient verbally consented to billing insurance company: Yes Patient informed of any privacy concerns related to visit: Yes Coding Level of Care Code Tele Est Pt Level 3 (50079) Diagnoses Hypotestosteronism E34.9
== END 2023-10-31 09:13 | disposition home or self-care (01) ==
LOC: HO.HUSH 08:24
PROVIDERS: PCP Nurse Practitioner Family; Visit Provider Urology
DX: E34.9 Endocrine disorder, unspecified (principal)
CPT/HCPCS: 99442

== ENCOUNTER → 2023-10-31 08:24 | Outpatient (BNVA) | payer BC, SELFPAY | PROVIDERS: PCP Nurse Practitioner Family; Visit Provider Urology ==

== ENCOUNTER 2023-11-02 09:08 | Outpatient (REF) | payer BC, SELFPAY ==
[2023-11-02 09:29] LABS: MANUAL DIFF FLAG NO
[2023-11-02 10:20] LABS: Basophils Percent Auto 0.5 % (0-2); Eosinophils Percent Auto 0.3 % (0-4); Hematocrit 42.3 % (42.0-52.0); Hemoglobin 14.7 g/dl (14.0-18.0); Imm Gran Abs Auto 0.02 X10*3/uL (0.00-0.03); Imm Gran Pct Auto 0.3 % (0.0-0.4); Lymphocytes Absolute Auto 1.1 X10*3/uL (1.2-4.9); Mean Corpuscular HGB Conc 34.8 g/dl (31.0-36.0); Mean Corpuscular Hemoglobin 29.9 pg (27.0-33.0); Mean Platelet Volume 11.1 fL (9.4-12.4); Monocytes Absolute Auto 0.4 X10*3/uL (0.1-1.2); Monocytes Percent Auto 6.9 % (2-11); Neutrophils Absolute Auto 4.3 x10*3/uL (2.0-8.3); Platelet Count 264 X10*3/uL (160-400); Red Blood Count 4.92 X10*6/uL (4.60-5.80); Red Cell Distribution Width 12.5 % (11.0-16.0); White Blood Count 5.9 X10*3/uL (4.8-10.8)
[2023-11-02 11:02] LABS: Prostate Specific Antigen 0.47 ng/mL (<0.05-4.0)
[2023-11-08 16:17] LABS: Testosterone, Total 420 ng/dL (250-1100)
== END 2023-11-02 09:09 | disposition home or self-care (01) ==
LOC: HO.LAB 09:08
PROVIDERS: Urology; PCP Nurse Practitioner Family; Visit Provider Nurse Practitioner Family
DX: Z12.5 Encounter for screening for malignant neoplasm of prostate (principal); D72.829 Elevated white blood cell count, unspecified; E29.1 Testicular hypofunction
CPT/HCPCS: 36415; 84153; 84403; 85025; 85027

== ENCOUNTER 2023-11-07 16:24 | Outpatient (AMB) | payer BC, SELFPAY ==
[2023-11-07 16:27] VITALS: BP 130/82; PULSE 85; O2SAT 96; BMI 28.7
--- NOTE | 2023-11-07 16:27 | A.OFFPC_ITS ---
Vital Signs 11/07/23 16:27 Height 5 ft 10 in Weight 200 lb BMI 28.7 BP 130/82 Blood Pressure Location Lt brachial Position Sitting Pulse 85 Pulse Source Pulse Oximeter Pulse Oximetry (%) 96 Oxygen Delivery Method Room Air Intake Visit Reasons: PE Intake Note: pt is here for physical exam Roll Forger Required: No Accompanied by: Self / Same As Patient Allergies No Known Allergies Allergy (Verified 11/07/23 16:28) Medication List - Last Reconciled 11/07/23 by SON Herring buprenorphine-naloxone 2-0.5 mg (Suboxone) 1 film buccal DAILY buprenorphine-naloxone 8-2 mg (Suboxone) 1 film sublingual DAILY clonazepam 1 mg PO DAILY PRN insulin syringe-needle U-100 (BD Insulin Syringe) As directed needle (disp) 22 G (BD Regular Bevel [place]) As directed needle (disp) 25 gauge (BD Regular Bevel [place]) As directed - for testosterone subcutaneous injection syringe (disposable) (BD Luer-Alejandra Syringe) Testosterone injection weekly testosterone cypionate 100 mg (0.5 mL) subcut QWEEK 28 days Tobacco use date assessed: 11/07/23 Dental Screening Dental Screen Date: 11/07/23 Did you have a dental visit in the last 12 months?: Yes Did you have a dental problem in the last 6 months where you did not have access to dental care?: No Was dental information given to patient?: Patient has dentist HPI PE HPI Details Here for a PE. Colon screen is scheduled. Pt reports taking phenibut for years. He reports wanting to stop this medication (apparently sold online). He reports he will bring this up with his psych provider. Pt further reports having very bad knees . He describes seeing a ortho at [facility] for possible surgery (which he did not have done), because of his knee issues and bow-legged gait. Pt would like to investigate into this further. Told him i would start with knee XRs and refer to [facility] as he requested. [facility] Medical History History of arthroplasty of finger (~2017) Obesity (BMI 30-39.9) Smoker Adrenal adenoma Osteoarthritis Hypotestosteronism Surgical History History of total adrenalectomy H/O arthroscopy of left knee (~2010) Family History Father No problems noted. Mother No problems noted. 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 1. Little interest or pleasure in doing things: several days 2. Feeling down, depressed, or hopeless: several days 3. Trouble falling or staying asleep, or sleeping too much: several days 4. Feeling tired or having little energy: several days 5. Poor appetite or overeating: not at all 6. Feeling bad about yourself - or that you are a failure or have let yourself or your family down: not at all 7. Trouble concentrating on things, such as reading the newspaper or watching television: not at all 8. Moving or speaking so slowly that other people could have noticed. Or the opposite - being so fidgety or restless that you have been moving around a lot more than usual: several days 9. Thoughts that you would be better off or of hurting yourself in some way: not at all Total score: 5 Depression Screening Interpretation: Negative Depression Screening Done: Yes 56776 - PHQ-9 Billing: Yes Source: Developed by Drs. Erickson Mcmullen, Anca Woo, Willi Chávez and colleagues, with an educational mayito from [employer]. Thrive Questionnaire Date Thrive assessed: 11/07/23 I am a: Patient What is your living situation today?: I have a steady place to live Within the past 12 months, did the food you bought not last and you didn't have the money to get more?: Never true Within the past 12 months, did you worry whether your food would run out before you got money to buy more?: Never true Do you have trouble paying for medicines?: No Do you have trouble getting transportation to medical appointments?: No Do you have trouble paying your heating and electricity bill?: No Do you have trouble taking care of your child, family member or friend?: No Do you have trouble with day-to-day activities such as bathing, preparing meals, shopping, managing finances, etc.?: No Are you currently unemployed and looking for a job?: No Are you interested in more education?: No Please select the resources that you would like help with: None Currently or been in a relationship where the following occur: no concerns reported THRIVE Score: 0 AUDIT C Alcohol Use Questionnaire (AUDIT-C) 1. How often do you have a drink containing alcohol?: Never Total Score: 0 Score Reviewed/Action Taken: Yes VIRGINIA-7 AMB Questionnaire VIRGINIA-7 Date VIRGINIA - 7 assessed: 11/07/23 Feeling nervous, anxious, or on edge: 2 = More than half the days Not being able to stop or control worryin = More than half the days Worrying too much about different things: 2 = More than half the days Trouble relaxin = More than half the days Being so restless that it is hard to sit still: 2 = More than half the days Becoming easily annoyed or irritable: 1 = Several days Feeling afraid as if something awful might happen: 1 = Several days Total VIRGINIA-7 score (0-4 normal; 5-9 mild; 10-14 moderate; 15-21 severe): 12 Source: Developed by Drs. Erickson Mcmullen, Anca Woo, Willi Chávez and colleagues, with an educational mayito from [employer]. VIRGINIA-7 Assessment Billing V[place]GIN[place]-7 Assessment Tool: VIRGINIA-7 Assessment 56585 Review of Systems Const Denies chills and Denies fever(s) Eyes Denies blurry vision ENT Denies vertigo, Denies dizziness and Denies sore throat Card Denies chest pain at rest, Denies chest pain with activity, Denies diaphoresis, Denies dyspnea and Denies dyspnea on exertion Resp Denies cough, Denies dyspnea, Denies dyspnea on exertion and Denies wheezing GI Denies abdominal pain, Denies melena, Denies hematochezia, Denies constipation, Denies diarrhea and Denies loose stools Denies hematuria Musc Denies numbness and Denies tingling Skin/Breast Denies lesions Neuro Denies vertigo, Denies dizziness, Denies numbness and Denies tingling Psych Denies anxiety, Denies depression, Denies homicidal ideation, Denies suicidal ideation and Denies other (substance abuse) Aller/Immun Denies wheezing Physical exam (Primary Care) Vital Signs: Last Vital Signs Pulse 85 11/07/23 16:27 BP 130/82 11/07/23 16:27 Pulse Ox 96 11/07/23 16:27 Oxygen Delivery Method Room Air 11/07/23 16:27 BMI result Body Mass Index 28.7 Tobacco/Smoking Status: Tobacco use Status Tobacco use date assessed 11/07/23 11/07/23 16:30 Patient Tobacco Use Status Current everyday Tobacco 11/07/23 16:30 e-Cigarette/Vaping Use Never Used 11/07/23 16:30 PHQ-9: PHQ-9 Score PHQ-9: Total score 5 11/07/23 16:34 Depression Screening Interpretation: Negative Thrive Assessment: Date of Thrive Assessment Date Thrive assessed 11/07/23 11/07/23 16:34 Currently or been in a relationship where the following occur: no concerns reported Const General: cooperative Nutritional Appearance: well nourished Orientation/consciousness: patient oriented x3 HENMT Head: Yes normal to inspection, Yes normocephalic and Yes atraumatic Ears: TM normal on the right and TM normal on the left Eyes General: appearance normal, both eyes and all related structures Alignment and Position: alignment normal and position normal Neck Neck: Yes normal visual inspection and Yes no lymphadenopathy Resp Effort & Inspection: normal respiratory effort Auscultation: clear to auscultation bilaterally Cardio Rate: regular rate Rhythm: regular rhythm Heart sounds: S1 normal heart sound present, S2 normal heart sound present and no murmurs GI Palpation (GI): Soft to palpation and nontender Auscultation: normal bowel sounds Male General Exam: Yes normal external exam Penis: normal penis Scrotum: scrotum normal, testes descended bilaterally and no inguinal hernias Testes: no testicular mass Skin Rashes: no rashes Neuro General: patient oriented x3, moves all extremities, no focal motor deficits and deep tendon reflexes 2+ bilaterally Romberg Test: Negative Extrem Other: significant bowing of BLE, R>L. crepitus noted to bilat knees with extension and flexion. neg lachmans and mccmurrays Right lower extremity: no edema Left lower extremity: no edema Psych Affect: normal affect Attitude: cooperative Thought process: Normal thought process present Assessment and Plan Assessment & Plan (1) Physical exam: Code(s): Z00.00 - Encounter for general adult medical examination without abnormal findings (2) Bowing of leg: Comment: bilat Code(s): M21.169 - Varus deformity, not elsewhere classified, unspecified knee (3) Knee pain, bilateral: Code(s): M25.561 - Pain in right knee; M25.562 - Pain in left knee Plan: XRs ordered referred to [facility] as requested Orders: Orders Comprehensive [place]. Panel Fast Today Z00.00 - Encounter for general adult medical examination without abnormal findings TSH reflex Free T4 Today Z00.00 - Encounter for general adult medical examination without abnormal findings Lipid Panel Today Z00.00 - Encounter for general adult medical examination without abnormal findings XR knee RT 2V Today M21.169 - Varus deformity, not elsewhere classified, unspecified knee, M25.561 - Pain in right knee, M25.562 - Pain in left knee Complete Blood Count Auto Diff Today Z00.00 - Encounter for general adult medical examination without abnormal findings UA CC w/rflx Micro + Cult Today Z00.00 - Encounter for general adult medical examination without abnormal findings XR knee LT 2V Today M21.169 - Varus deformity, not elsewhere classified, unspecified knee, M25.561 - Pain in right knee, M25.562 - Pain in left knee Referrals Orthopedics Referral M21.169 - Varus deformity, not elsewhere classified, unspecified knee, M25.561 - Pain in right knee, M25.562 - Pain in left knee Coding Level of Care Code Est Pt Prev Care 40-64y(12316) Diagnoses Physical exam Z00.00 Bowing of leg M21.169 Knee pain, bilateral M25.561; M25.562 Additional Codes VIRGINIA-7 Assessment Billing - V[place]GINIA-7 Assessment Tool: [place]GIN[place]-7 Assessment 09292 ([id number])
== END 2023-11-07 17:09 | disposition home or self-care (01) ==
PROVIDERS: Visit Provider Nurse Practitioner Family
DX: Z00.00 Encounter for general adult medical examination without abnormal findings (principal); M21.169 Varus deformity, not elsewhere classified, unspecified knee; M25.561 Pain in right knee; M25.562 Pain in left knee
CPT/HCPCS: 99396

== ENCOUNTER 2023-11-15 16:12 | Outpatient (AMB) | payer BC, SELFPAY ==
--- NOTE | 2023-11-15 16:22 | A.OFFVISCC_ITS ---
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 Required: No Allergies No Known Allergies Allergy (Verified 11/15/23 16:23) Do you need a note to return to daycare/school/sports/work: No HPI mat visit HPI Details Patient presents for follow up He reports he has not taken any energy drinks in 6 weeks and is drinking minimal coffee stopped phenibut 2 weeks ago, but has been taking 2mg Klonopin daily He is prescribed 1mg QD PRN by PCP He presents as anxious as he will soon run out of Klonopin Lengthy conversation with patient advising that Klonopin 2mg daily is a high starting dose and not one that will continue Patient agreeable [facility] Medical History History of arthroplasty of finger (~2016) Obesity (BMI 30-39.9) Smoker Adrenal adenoma Osteoarthritis Hypotestosteronism Surgical History History of total adrenalectomy H/O arthroscopy of left knee (~2010) Family History Father No problems noted. Mother No problems noted. 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 Cognitive needs: No Hearing needs: No Vision needs: No Review of Systems Const Reports as per HPI Physical Exam Vital Signs: Last Vital Signs Pulse 86 11/15/23 16:27 BP 138/76 11/15/23 16:27 Pulse Ox 98 11/15/23 16:27 Oxygen Delivery Method Room Air 11/15/23 16:27 Const General: cooperative and healthy appearing Resp Effort & Inspection: normal respiratory effort Psych Appearance: grossly normal Mental Status: mental status grossly normal Speech and movement: Normal speech and movement present Affect: normal affect Attitude: cooperative Insight: Good insight present (Psych) Judgement: Good judgement present (Psych) Assessment & Plan Assessment & Plan (1) Opioid dependence: Code(s): F11.20 - Opioid dependence, uncomplicated Qualifiers: Substance use status: uncomplicated Qualified Code(s): F11.20 - Opioid dependence, uncomplicated Plan: * continue suboxone at current dose * follow up one month regarding klonopin rx. Plan to start taper of current dose * risk reduction discussion Medications: Changed From clonazepam 1 mg PO DAILY PRN 30 tabs 1RF anxiety To clonazepam 1 mg PO BID 30 tabs 1RF Refilled buprenorphine-naloxone 8-2 mg (Suboxone) 1 film sublingual DAILY 30 ea 0RF Discontinued buprenorphine-naloxone 2-0.5 mg to be taken in addition to 8mg daily--total of 10mg daily Discontinued Reason: No Longer Medically Relevant 1 film buccal DAILY 30 ea 1RF Coding Level of Care Code Est Pt Level 4 (95106) Diagnoses Uncomplicated opioid dependence F11.20 Substance use status: uncomplicated
[2023-11-15 16:27] VITALS: BP 138/76; PULSE 86; O2SAT 98
== END 2023-11-15 17:10 | disposition home or self-care (01) ==
PROVIDERS: PCP Nurse Practitioner Family; Visit Provider Nurse Practitioner Psychiatric/Mental Health
DX: F11.20 Opioid dependence, uncomplicated (principal)
CPT/HCPCS: 99214

== ENCOUNTER → 2023-11-15 16:12 | Outpatient (BNVA) | payer BC, SELFPAY | PROVIDERS: PCP Nurse Practitioner Family; Visit Provider Nurse Practitioner Psychiatric/Mental Health ==

== ENCOUNTER 2023-11-18 09:30 | Outpatient (REF) | payer BC, SELFPAY ==
--- NOTE | ~2023-11-18 | XR_ITS ---
X-RAY BILATERAL KNEES CLINICAL HISTORY: Pain. COMPARISON: Radiograph left knee 11/02/2007. TECHNIQUE: 2 views of each knee. FINDINGS: Right knee: No fracture or subluxation. Moderate joint space narrowing of the medial and patellofemoral compartments. Moderate multifocal marginal osteophytes. Well-corticated 1 cm ossific body projecting over the joint space on the lateral view suggestive of a loose body. Moderate joint effusion. Left knee: No fracture or subluxation. Moderate to severe joint space narrowing of the medial and patellofemoral compartments with prominent multifocal marginal osteophytes. Small joint effusion. XR/XR knee RT 2V IMPRESSION: 1. No acute fractures or malalignment. 2. Moderate to severe degenerative osteoarthritis of the left knee and moderate degenerative changes of the right knee. 3. Moderate right and small left joint effusions.
--- NOTE | ~2023-11-18 | XR_ITS ---
X-RAY BILATERAL KNEES CLINICAL HISTORY: Pain. COMPARISON: Radiograph left knee 11/02/2007. TECHNIQUE: 2 views of each knee. FINDINGS: Right knee: No fracture or subluxation. Moderate joint space narrowing of the medial and patellofemoral compartments. Moderate multifocal marginal osteophytes. Well-corticated 1 cm ossific body projecting over the joint space on the lateral view suggestive of a loose body. Moderate joint effusion. Left knee: No fracture or subluxation. Moderate to severe joint space narrowing of the medial and patellofemoral compartments with prominent multifocal marginal osteophytes. Small joint effusion. XR/XR knee LT 2V IMPRESSION: 1. No acute fractures or malalignment. 2. Moderate to severe degenerative osteoarthritis of the left knee and moderate degenerative changes of the right knee. 3. Moderate right and small left joint effusions.
== END 2023-11-18 09:31 | disposition home or self-care (01) ==
LOC: HO.HMGCX 09:30
PROVIDERS: PCP Nurse Practitioner Family; Visit Provider Nurse Practitioner Family
DX: M21.169 Varus deformity, not elsewhere classified, unspecified knee (principal); M25.561 Pain in right knee; M25.562 Pain in left knee
CPT/HCPCS: 73560

== ENCOUNTER 2023-12-13 09:14 | Outpatient (AMB) | payer BC, SELFPAY ==
--- NOTE | 2023-12-13 09:14 | A.OFFVISCC_ITS ---
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 Mother No problems noted. 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 Cognitive needs: No Hearing needs: No Vision needs: No Review of Systems Const Reports as per HPI and Reports no additional complaints Telehealth Telehealth Telehealth Platform: Telephone Location of provider rendering services: practice address Location of patient: other Patient Identification confirmed using: Name, : Yes Telehealth method: voice only Patient verbally consented to treatment: Yes Patient verbally consented to billing insurance company: Yes Minutes spent on Phone/Video with Pt.: 25 Assessment & Plan Assessment & Plan (1) Opioid dependence: Code(s): F11.20 - Opioid dependence, uncomplicated Category: Medical Qualifiers: Substance use status: uncomplicated Qualified Code(s): F11.20 - Opioid dependence, uncomplicated Plan: * Suboxone 8mg QD * no other changes to dose (2) Benzodiazepine dependence: Code(s): F13.20 - Sedative, hypnotic or anxiolytic dependence, uncomplicated Category: Medical Plan: * reinforced NOT taking phenibut during taper-risk for overdose * plan for taper in HPI --discussed with patient and he is agreeable Medications: New clonazepam 1 mg PO DAILY 30 tabs 0RF clonazepam administer 30 minutes before bedtime 0.75 mg (1.5 x 0.5 mg) PO BEDTIME 45 tabs 0RF Refilled buprenorphine-naloxone 8-2 mg (Suboxone) 1 film sublingual DAILY 30 ea 0RF Discontinued clonazepam Discontinued Reason: Doctor's Order 1 mg PO BID 30 tabs 1RF buprenorphine-naloxone 4-1 mg take one film daily at 2 pm in addition to 8mg film Discontinued Reason: Doctor's Order 1 film sublingual Q24H 14 ea 0RF clonazepam Discontinued Reason: Doctor's Order 0.5 mg orally take 2 tabs in AM (1mg total) take 1.5tabs in evening (0.75mg ); 49 tabs 1RF
== END 2023-12-13 09:30 | disposition home or self-care (01) ==
PROVIDERS: PCP Nurse Practitioner Family; Visit Provider Nurse Practitioner Psychiatric/Mental Health
DX: F11.20 Opioid dependence, uncomplicated (principal); F13.20 Sedative, hypnotic or anxiolytic dependence, uncomplicated
CPT/HCPCS: 99443

== ENCOUNTER → 2023-12-13 09:14 | Outpatient (BNVA) | payer BC, SELFPAY | PROVIDERS: PCP Nurse Practitioner Family; Visit Provider Nurse Practitioner Psychiatric/Mental Health ==

== ENCOUNTER 2024-01-10 10:32 | Outpatient (AMB) | payer BC, SELFPAY ==
--- NOTE | 2024-01-10 10:32 | MHC.AM.SUB ---
Intake Visit Reasons: MAT Tele Allergies No Known Allergies Allergy (Verified 11/15/23 16:23) HPI HPI MAT Tele: Details: Patient presents for follow up via telehealth Reports that he has been doing very well with transition to Clonazepam Feels stable --1st time with no phenibut in over 10 years wants to switch Subxone to 4mg BID as a way to decrease to 6mg QD (1.5 films) discussed ongoing taper for clonazepam, patient aware and agreeable [facility], [facility] Medical History History of arthroplasty of finger (~2016) Obesity (BMI 30-39.9) Smoker Adrenal adenoma Osteoarthritis Hypotestosteronism Surgical History History of total adrenalectomy H/O arthroscopy of left knee (~2010) Family History Father No problems noted. Mother No problems noted. 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 Cognitive needs: No Hearing needs: No Vision needs: No Review of Systems Const Reports as per HPI and Reports no additional complaints Telehealth Telehealth Telehealth Platform: Telephone Location of provider rendering services: practice address Location of patient: address on file Patient Identification confirmed using: Name, : Yes Telehealth method: voice only Patient verbally consented to treatment: Yes Patient verbally consented to billing insurance company: Yes Minutes spent on Phone/Video with Pt.: 20 Assessment & Plan Assessment & Plan (1) Opioid dependence: Code(s): F11.20 - Opioid dependence, uncomplicated Category: Medical Qualifiers: Substance use status: uncomplicated Qualified Code(s): F11.20 - Opioid dependence, uncomplicated Plan: continue suboxone at current dose, but change to 4mg BID with goal of decreasing dose to 6mg encouraged to move slowly with taper to avoid rebound anxiety or other sx (2) Benzodiazepine dependence: Code(s): F13.20 - Sedative, hypnotic or anxiolytic dependence, uncomplicated Category: Medical Plan: Klonopin dose to be decreased to 1mg in AM and 0.5mg in evening
== END 2024-01-10 10:49 | disposition home or self-care (01) ==
PROVIDERS: PCP Nurse Practitioner Family; Visit Provider Nurse Practitioner Psychiatric/Mental Health
DX: F11.20 Opioid dependence, uncomplicated (principal); F13.20 Sedative, hypnotic or anxiolytic dependence, uncomplicated
CPT/HCPCS: 99442

== ENCOUNTER → 2024-01-10 10:32 | Outpatient (BNVA) | payer BC, SELFPAY | PROVIDERS: PCP Nurse Practitioner Family; Visit Provider Nurse Practitioner Psychiatric/Mental Health ==

== ENCOUNTER 2024-02-07 09:01 | Outpatient (AMB) | payer BC, SELFPAY ==
--- NOTE | 2024-02-07 09:10 | A.OFFVISCC_ITS ---
Intake Visit Reasons: MAT Tele Allergies No Known Allergies Allergy (Verified 11/15/23 16:23) HPI HPI MAT Tele: Details: Patient presnts for follow up via telehealth Reports a challening 2 weeks due to worsening dental pain. Scheduled for a root canal this afternoon Discussed pain management--agreeable to increase in dose temporarily to address discomfort. increase suboxone to 4mg tid No issues with Klonopin taper over the last month COUNT INCLUDES THE [facility] Medical History History of arthroplasty of finger (~2016) Obesity (BMI 30-39.9) Smoker Adrenal adenoma Osteoarthritis Hypotestosteronism Surgical History History of total adrenalectomy H/O arthroscopy of left knee (~2010) Family History Father No problems noted. Mother No problems noted. 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 Cognitive needs: No Hearing needs: No Vision needs: No Review of Systems Const Reports as per HPI and Reports no additional complaints Telehealth Telehealth Telehealth Platform: Telephone Location of provider rendering services: other Location of patient: address on file Patient Identification confirmed using: Name, : Yes Telehealth method: voice only Patient verbally consented to treatment: Yes Patient verbally consented to billing insurance company: Yes Minutes spent on Phone/Video with Pt.: 25 Assessment & Plan Assessment & Plan (1) Opioid dependence: Code(s): F11.20 - Opioid dependence, uncomplicated Category: Medical Qualifiers: Substance use status: uncomplicated Qualified Code(s): F11.20 - Opioid dependence, uncomplicated Plan: * increase suboxone to 4mg TID * follow up one month (2) Benzodiazepine dependence: Code(s): F13.20 - Sedative, hypnotic or anxiolytic dependence, uncomplicated Category: Medical Plan: * no change to taper this month --will decrease dose next month Medications: New buprenorphine-naloxone 4-1 mg (Suboxone) 1 film buccal TID 90 ea 0RF Refilled clonazepam 1 mg (1/2 x 2 mg) PO DAILY 15 tabs 0RF clonazepam administer 30 minutes before bedtime 0.5 mg PO BEDTIME 30 tabs 0RF Discontinued buprenorphine-naloxone 8-2 mg (Suboxone) Discontinued Reason: Doctor's Order 1 film sublingual DAILY 30 ea 0RF
== END 2024-02-07 09:49 | disposition home or self-care (01) ==
PROVIDERS: PCP Nurse Practitioner Family; Visit Provider Nurse Practitioner Psychiatric/Mental Health
DX: F11.20 Opioid dependence, uncomplicated (principal); F13.20 Sedative, hypnotic or anxiolytic dependence, uncomplicated
CPT/HCPCS: 99443

== ENCOUNTER → 2024-02-07 09:01 | Outpatient (BNVA) | payer BC, SELFPAY | PROVIDERS: PCP Nurse Practitioner Family; Visit Provider Nurse Practitioner Psychiatric/Mental Health ==

== ENCOUNTER 2024-02-23 09:01 | Day surgery (SDC) | payer BC, SELFPAY ==
--- NOTE | 2024-02-22 09:26 | HO.ANESPROP2 ---
Documented by User: Sugar Monteiro NP 02/22/24 09:26 HPI - Anesthesia Eval Consult details Narrative: 48yo M for Colonoscopy Suboxone daily PMFSH Active Problems Active Problems: All Active Problems Benzodiazepine dependence (Acute) Bowing of leg (Acute) Knee pain, bilateral (Acute) Leukocytosis (Acute) Physical exam (Acute) Screening for colon cancer (Acute) Opioid dependence (Acute) Drug dependence, continuous abuse (Acute) Anxiety (Acute) Mixed anxiety depressive disorder (Acute) Physical exam (Acute) Obesity (BMI 30-39.9) (Acute) Smoker (Acute) Hypotestosteronism (Acute) Hypogonadism in male (Acute) Past Medical History Medical History History of arthroplasty of finger (~2016) Obesity (BMI 30-39.9) Smoker Adrenal adenoma Osteoarthritis Hypotestosteronism Family History Family History Father No problems noted. Mother No problems noted. 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 Mother No problems noted. 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 Cognitive needs: No Hearing needs: No Vision needs: No Meds Allergies Allergy/AdvReac Type Severity Reaction Status Date / Time No Known Allergies Allergy Verified 02/23/24 09:16 Exam Airway Mallampati Class: II TM Dist: >3cm Neck ROM: Full Heart: rrr Lungs: cta Assessment and Plan Assessment Anesthesia Assessment: Anesthesia Plan Discussed Final Anesthetic Review Family History of Problems with Anesthesia: No History of Problems with Anesthesia: No NPO: Yes ASA Class: II Final Preanesthetic Review: No Changes in Pt Med Stat, Meds/Allgs Chart Reviewed and Consent Obtained/Reviewed Patient Risk: Low Procedure Risk: Low Anesthetic Plan Anesthetic Plan: MAC: Disposition: Standard PACU
[2024-02-23 09:10] VITALS: BMI 29.4
--- NOTE | 2024-02-23 09:21 | MHC.SHP ---
Pre-Procedural Eval Section A - 24 Hr Update-Section A only Date of Service: 02/23/24 The patient is an INPATIENT: No The patient has been examined within 24 hours of the surgical procedure. The History & Physical has been completed within 30 days and I have reviewed it.: No Section B - Complete if H&P > 30 days Chief Complaint: screening Relevant Family History (Specify if Yes): No Relevant Social History: Tobacco Use Present Medications: see Short Stay Collaborative assessment Medical History: Significant History (Adrenal adenoma History of arthroplasty of finger (~2016) Hypotestosteronism Obesity (BMI 30-39.9) Osteoarthritis Smoker) History of Previous Operations: Relevant previous surgery/procedure and date(s) (H/O arthroscopy of left knee (~2010) History of total adrenalectomy) Allergies: Allergies Allergy/AdvReac Type Severity Reaction Status Date / Time No Known Allergies Allergy Verified 02/23/24 09:16 Review of Systems Sugical H&P ROS: Negative: Constitution, Cardiovascular, Respiratory and Gastrointestinal Exam Surgical H&P Exam: Normal: Heart, Normal: Lungs, Normal: Extremities and Normal: Abdomen Plan Diagnosis/Plan: Unchanged I have reviewed the history and physical and performed a pertinent physical examination on my patient. No changes have occurred unless specified. Time Spent With Patient Time: Total time managing care of this patient today ____ minutes.
[2024-02-23 09:30] VITALS: BP 109/59; PULSE 76; RESP 16; TEMP 37.6; O2SAT 95
[2024-02-23] MEDS: Lactated Ringers 1,000 ML 100 ML IVCONT (09:54)
--- NOTE | 2024-02-23 10:58 | HO.OPN-COLON ---
Colonoscopy Operative Note Operative Note Date of Service: 02/23/24 Narrative: COLONOSCOPY TILL CECUM WITH BIOPSIES Pre-op diagnosis: Colon cancer screening (first colonoscopy). Post-op diagnosis:? Colon polyp, Diverticulosis Endoscopist:? Danielle Thompson MD Anesthesia:?MAC Consent: Indications for the procedure and potential complications of bleeding, perforation, reaction to medications and missed diagnosis were discussed with the patient and informed consent was obtained. Instrument: Olympus CF H 190 L variable stiffness adult colonoscope Monitoring: Vital signs and clinical assessment, intermittent blood pressure monitoring, continuous EKG monitoring, Pulse oximetry and Carbon Dioxide monitoring were done throughout the procedure. Please see anesthesia flowsheet. Colon withdrawl time was 18 minutes. Procedure: The patient was placed in the left lateral decubitis position and pre-procedure medications were administered. After a digital rectal examination of the ano-rectum, the video colonoscope was inserted into the rectum and advanced through the colon to the cecum. The colonoscope was slowly withdrawn in a retrograde panoramic fashion and the colon mucosa was carefully examined including a retroflexed view of the rectum. Findings and interventions are described below. Procedure Difficulty: without difficulty Findings: Terminal Ileum: Not evaluated Cecum: Normal Ascending Colon: Moderate diverticulosis scattered in the right colon Transverse Colon: Normal Descending Colon: A 3-4 mm diminutive appearing polyp - removed with a cold biopsy Sigmoid Colon: Moderate diverticulosis Rectum: Normal Ano-rectum: Normal Colon preparation: Excellent [place] Bowel Preparation Scale Right colon; 3 Transverse colon: 3 Left colon; 3 (0 = Unprepared colon segment with mucosa not seen due to solid stool that cannot be cleared. 1 = Portion of mucosa of the colon segment seen, but other areas of the colon segment not well seen due to staining, residual stool and/or opaque liquid. 2 = Minor amount of residual staining, small fragments of stool and/or opaque liquid, but mucosa of colon segment seen well. 3 = Entire mucosa of colon segment seen well with no residual staining, small fragments of stool or opaque liquid) Impression and Post Procedure Diagnosis: Colonoscopy Findings: One small polyp was removed Moderate diverticulosis seen in the sigmoid and right colon Plan: Pt has a FU appointment on 03/01/24 with Lynn Stafford NP Repeat Colonoscopy in 5 years if polyps are adenomatous and 10 year if polyps are hyperplastic. Above findings were reviewed with the patient and relevant handouts were given and the discharge area.
[2024-02-23 10:59] VITALS: BP 93/50; PULSE 75; RESP 16; TEMP 36.8; O2SAT 97
[2024-02-23 11:14] VITALS: BP 101/50; PULSE 75; RESP 16; TEMP 36.9; O2SAT 96
== END 2024-02-23 11:45 | disposition home or self-care (01) ==
PROVIDERS: PCP Nurse Practitioner Family; Visit Provider Internal Medicine Gastroenterology
PROC: 0DJD8ZZ Inspection of Lower Intestinal Tract, Via Natural or Artificial Opening Endoscopic (ICD-10-PCS; CPT 45378; principal; 2024-02-23 10:10)
DX: Z12.11 Encounter for screening for malignant neoplasm of colon (principal); K57.30 Diverticulosis of large intestine without perforation or abscess without bleeding; K63.5 Polyp of colon; F13.20 Sedative, hypnotic or anxiolytic dependence, uncomplicated; F11.20 Opioid dependence, uncomplicated; F41.8 Other specified anxiety disorders; F17.210 Nicotine dependence, cigarettes, uncomplicated
CPT/HCPCS: 45380; 88305; J2704

== ENCOUNTER → 2024-02-23 09:01 | Outpatient (BNV) | payer BC, SELFPAY | PROVIDERS: PCP Nurse Practitioner Family; Visit Provider Internal Medicine Gastroenterology | DX: Z12.11 Encounter for screening for malignant neoplasm of colon (principal); K63.5 Polyp of colon; K57.90 Diverticulosis of intestine, part unspecified, without perforation or abscess without bleeding | CPT/HCPCS: 45380 ==

== ENCOUNTER → 2024-03-01 16:12 | Outpatient (BNVA) | payer BC, SELFPAY | PROVIDERS: PCP Nurse Practitioner Family; Visit Provider Nurse Practitioner Family ==

== ENCOUNTER → 2024-03-01 16:12 | Outpatient (AMB) | payer BC, SELFPAY ==
--- NOTE | 2024-03-01 16:13 | A.OFFVIS_ITS ---
Vital Signs 03/01/24 16:17 Height 5 ft 10 in Weight 206 lb 12.697 oz BMI 29.7 BP 128/72 Blood Pressure Location Rt brachial Position Sitting Pulse 76 Pulse Source Pulse Oximeter Pulse Oximetry (%) 98 Oxygen Delivery Method Room Air Intake Visit Reasons: S/p ally Thompson Intake Note: Anish presents in office today for a scheduled post op FUV. CC; Pt denies any complications or new concerns since the procedure. Pt denies any additional concerns and is here to discuss the results only. Infant Childcare Provider Required: No Allergies No Known Allergies Allergy (Verified 03/01/24 16:14) HPI HPI S/p ally Thompson: Details: LAST VISIT: Screening for colon cancer .? Patient denies any GI, cardiac or respiratory symptoms.? Denies any issues with anesthesia in the past.? Denies any history of sleep apnea.? No history infectious diseases in the past or present.? Not on any anticoagulation therapy.? No family or personal history of colon cancer or polyps.? Patient denies melena, hematochezia, unintentional weight loss or ribbon like stools.? Discussed at length the pre-procedure,? prep, diet & medications as well as what to expect prior, during and after the procedure.?? Stressed the importance of good bowel prep. ?Recommended the use of Vaseline or Calmoseptine OTC & baby wipes with bowel movements to promote comfort.? ?Patient verbalizes understanding and agrees to plan of care.? He was given the opportunity to ask questions and all questions answered.? We will see him after the procedure.? Plan Medications New bisacodyl (Dulcolax (bisacodyl)) take 2 tabs at noon the day before your colonoscopy 10 mg (2 x 5 mg) PO ONCE 2 tabs 0RF 1 day Z12.11 - Encounter for screening for malignant neoplasm of colon polyethylene glycol 3350 (Miralax) As directed by gastroenterology department at [facility] 238 grams PO ONCE 238 grams 0RF Z12.11 - Encounter for screening for malignant neoplasm of colon COLONOSCOPY: Findings: Terminal Ileum: Not evaluated Cecum: Normal Ascending Colon: Moderate diverticulosis scattered in the right colon Transverse Colon: Normal Descending Colon: A 3-4 mm diminutive appearing polyp - removed with a cold biopsy Sigmoid Colon: Moderate diverticulosis Rectum: Normal Ano-rectum: Normal Colon preparation: Excellent [place] Bowel Preparation Scale Right colon; 3 Transverse colon: 3 Left colon; 3 (0 = Unprepared colon segment with mucosa not seen due to solid stool that cannot be cleared. 1 = Portion of mucosa of the colon segment seen, but other areas of the colon segment not well seen due to staining, residual stool and/or opaque liquid. 2 = Minor amount of residual staining, small fragments of stool and/or opaque liquid, but mucosa of colon segment seen well. 3 = Entire mucosa of colon segment seen well with no residual staining, small fragments of stool or opaque liquid) Impression and Post Procedure Diagnosis: Colonoscopy Findings: One small polyp was removed Moderate diverticulosis seen in the sigmoid and right colon Plan: Repeat Colonoscopy in 5 years if polyps are adenomatous and 10 year if polyps are hyperplastic. PATHOLOGY: Diagnosis Colon, descending, polypectomy: Hyperplastic mucosal polyp TODAYS VISIT: Patient is here today for follow-up and to discuss colonoscopy results. Patient had 1 polyp in descending colon, moderate diverticulosis in ascending and sigmoid colon. Patient denies any ill effects from the prep, anesthesia or procedure itself. Hyperplastic mucosal polyp found and colonoscopy recommendation is in 10 years. Patient denies any family history of CRC. Denies any GI concerning symptoms today. [facility] Medical History (Updated 03/01/24 @ 21:01 by Licha Stafford, [facility]) Diverticulosis History of arthroplasty of finger (~2016) Obesity (BMI 30-39.9) Smoker Adrenal adenoma Osteoarthritis Hypotestosteronism Surgical History H/O colonoscopy History of total adrenalectomy H/O arthroscopy of left knee (~2010) Family History Father No problems noted. Mother No problems noted. 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 Cognitive needs: No Hearing needs: No Vision needs: No Review of Systems Const Denies weight gain and Denies weight loss ENT Reports no additional complaints, Denies dysphagia and Denies odynophagia Card Reports no additional complaints Resp Reports no additional complaints GI Denies abdominal pain, Denies belching, Denies melena, Denies bloating, Denies change in bowel habits, Denies dysphagia, Denies excessive flatus, Denies dyspepsia, Denies heartburn, Denies diarrhea, Denies loose stools, Denies nausea, Denies odynophagia and Denies vomiting Reports no additional complaints Musc Reports no additional complaints Neuro Reports no additional complaints Psych Reports no additional complaints Endo Reports no additional complaints Physical Exam Vital Signs: Last Vital Signs Pulse 76 03/01/24 16:17 BP 128/72 03/01/24 16:17 Pulse Ox 98 03/01/24 16:17 Oxygen Delivery Method Room Air 03/01/24 16:17 BMI result Body Mass Index 29.7 Const General: healthy appearing and no acute distress Nutritional Appearance: overweight Orientation/consciousness: patient oriented x3 Resp Effort & Inspection: normal respiratory effort, able to speak in complete sentences, no tracheal deviation and symmetric chest movement Auscultation: clear to auscultation bilaterally Cardio Rate: regular rate GI Inspection: Yes normal to inspection, No distended and Yes obesity Palpation (GI): Soft to palpation, not firm, nontender and No hepatosplenomegaly present Auscultation: normal bowel sounds General: Yes no CVA tenderness Back/Spine/Pelvis Back: no CVA tenderness Skin General skin exam: elasticity normal, turgor normal and dry skin Neuro General: patient oriented x3 Psych Appearance: grossly normal Mental Status: mental status grossly normal Assessment & Plan Assessment & Plan (1) Diverticulosis: Code(s): K57.90 - Diverticulosis of intestine, part unspecified, without perforation or abscess without bleeding Category: Medical (2) Status post colonoscopy: Code(s): Z98.890 - Other specified postprocedural states Plan Hyperplastic polyp found colonoscopy in 10 years, sooner if clinically necessary. Patient does not have any family history of CRC. Diverticulosis found in ascending colon and sigmoid colon. Discussed with patient the importance of high-fiber diet. May take probiotics. May also take fiber supplements. Follow-up on as needed basis. Patient will call our office if he will have any GI concerning symptoms. Patient is agreeable to this plan and verbalizes understanding of instructions. He was given the opportunity to ask questions and all questions answered. Thank you for allowing me to participate in his care Thank you for allowing me to participate in his care Coding Level of Care Code Est Pt Level 3 (36746) Diagnoses Diverticulosis K57.90 Status post colonoscopy Z98.890 Time Spent (min) 25 Comment 15 minutes spent with patient and additional 10 minutes spent reviewing his records
[2024-03-01 16:17] VITALS: BP 128/72; PULSE 76; O2SAT 98; BMI 29.7
== END ==
PROVIDERS: PCP Nurse Practitioner Family; Visit Provider Nurse Practitioner Family
DX: K57.90 Diverticulosis of intestine, part unspecified, without perforation or abscess without bleeding (principal); Z98.890 Other specified postprocedural states
CPT/HCPCS: 99213

== ENCOUNTER 2024-03-08 08:38 | Outpatient (AMB) | payer BC, SELFPAY ==
--- NOTE | 2024-03-08 10:49 | MHC.AM.SUB ---
Intake Visit Reasons: MAT Tele Allergies No Known Allergies Allergy (Verified 03/01/24 16:14) [facility] MAT Tele: Details: Patient presents for follow up via telehealth Currently prescribed Suboxone 4mg TID Doing well with current medications scheduled for clonazepam dose decrease today [facility] Medical History (Updated 03/01/24 @ 21:01 by Licha Stafford [facility]) Diverticulosis History of arthroplasty of finger (~2016) Obesity (BMI 30-39.9) Smoker Adrenal adenoma Osteoarthritis Hypotestosteronism Surgical History H/O colonoscopy History of total adrenalectomy H/O arthroscopy of left knee (~2010) Family History Father No problems noted. Mother No problems noted. 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 Cognitive needs: No Hearing needs: No Vision needs: No Review of Systems Const Reports as per [facility] Telehealth Telehealth Telehealth Platform: Telephone Location of provider rendering services: practice address Location of patient: other Patient Identification confirmed using: Name, : Yes Telehealth method: voice only Patient verbally consented to treatment: Yes Patient verbally consented to billing insurance company: Yes Minutes spent on Phone/Video with Pt.: 15 Assessment & Plan Assessment & Plan (1) Opioid dependence: Code(s): F11.20 - Opioid dependence, uncomplicated Category: Medical Qualifiers: Substance use status: uncomplicated Qualified Code(s): F11.20 - Opioid dependence, uncomplicated Plan: continue suboxone at current dose follow up 4 weeks in office (2) Benzodiazepine dependence: Code(s): F13.20 - Sedative, hypnotic or anxiolytic dependence, uncomplicated Category: Medical Plan: clonazepam dose decreased to 1mg in AM and 0.25mg HS Medications: New clonazepam administer 30 minutes before bedtime 0.25 mg (1/2 x 0.5 mg) PO BEDTIME 15 tabs 0RF Refilled clonazepam 1 mg (1/2 x 2 mg) PO DAILY 15 tabs 0RF buprenorphine-naloxone 4-1 mg (Suboxone) 1 film buccal TID 90 ea 0RF buprenorphine-naloxone 4-1 mg (Suboxone) 1 film buccal TID 90 ea 0RF clonazepam 1 mg (1/2 x 2 mg) PO DAILY 15 tabs 0RF Discontinued clonazepam administer 30 minutes before bedtime Discontinued Reason: Doctor's Order 0.5 mg PO BEDTIME 30 tabs 0RF
== END 2024-03-08 10:45 | disposition home or self-care (01) ==
PROVIDERS: PCP Nurse Practitioner Family; Visit Provider Nurse Practitioner Psychiatric/Mental Health
DX: F11.20 Opioid dependence, uncomplicated (principal); F13.20 Sedative, hypnotic or anxiolytic dependence, uncomplicated
CPT/HCPCS: 99214

== ENCOUNTER → 2024-03-08 08:38 | Outpatient (BNVA) | payer BC, SELFPAY | PROVIDERS: PCP Nurse Practitioner Family; Visit Provider Nurse Practitioner Psychiatric/Mental Health ==

== ENCOUNTER 2024-03-27 16:16 | Outpatient (AMB) | payer BC, SELFPAY ==
--- NOTE | 2024-03-27 16:52 | MHC.AM.SUB ---
Intake Visit Reasons: MAT Allergies No Known Allergies Allergy (Verified 03/01/24 16:14) HPI HPI MAT: Details: interested in injection --concerned about his teeth 1mg in AM and 0.25HS difficulty with decrease in dose will go back to 1 and 0.5mg coffee on weekend one 5 hour energy drink occasionally PFSH Medical History (Updated 03/01/24 @ 21:01 by Licha Stafford [facility]) Diverticulosis History of arthroplasty of finger (~2016) Obesity (BMI 30-39.9) Smoker Adrenal adenoma Osteoarthritis Hypotestosteronism Surgical History H/O colonoscopy History of total adrenalectomy H/O arthroscopy of left knee (~2010) Family History Father No problems noted. Mother No problems noted. 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 Cognitive needs: No Hearing needs: No Vision needs: No Review of Systems Const Reports as per HPI and Reports no additional complaints Physical Exam Const General: cooperative and healthy appearing Psych Appearance: grossly normal Mental Status: mental status grossly normal Speech and movement: Normal speech and movement present Affect: normal affect Attitude: cooperative Insight: Good insight present (Psych) Judgement: Good judgement present (Psych) Assessment & Plan Assessment & Plan (1) Opioid dependence: Code(s): F11.20 - Opioid dependence, uncomplicated Category: Medical Qualifiers: Substance use status: uncomplicated Qualified Code(s): F11.20 - Opioid dependence, uncomplicated Plan: still undecided on injeciton continue suboxone at current dose (2) Benzodiazepine dependence: Code(s): F13.20 - Sedative, hypnotic or anxiolytic dependence, uncomplicated Category: Medical Plan: go back to 1mg in AM and 0.5mg HS will change dosing to 0.5mg mg BID and 0.25mg mid day next month
== END 2024-03-27 17:04 | disposition home or self-care (01) ==
PROVIDERS: PCP Nurse Practitioner Family; Visit Provider Nurse Practitioner Psychiatric/Mental Health
DX: F11.20 Opioid dependence, uncomplicated (principal); F13.20 Sedative, hypnotic or anxiolytic dependence, uncomplicated
CPT/HCPCS: 99214

== ENCOUNTER → 2024-03-27 16:16 | Outpatient (BNVA) | payer BC, SELFPAY | PROVIDERS: PCP Nurse Practitioner Family; Visit Provider Nurse Practitioner Psychiatric/Mental Health ==

== ENCOUNTER 2024-05-06 15:16 | Outpatient (REF) | payer BC, SELFPAY ==
[2024-05-06 16:01] LABS: Appearance Urine Clear; Color Urine Yellow; Glucose Urine UA Negative (Negative); Leukocyte Esterase Urine Negative (Negative); Nitrite Urine Negative (Negative); PH 6.5 (5.0-9.0); Specific Gravity - Urine <= 1.005 (1.005-1.025); Urine Blood Negative (Negative); Urine Ketones Negative (Negative); Urine Protein Negative (Neg-Trace)
[2024-05-06 16:04] LABS: Hematocrit 44.2 % (42.0-52.0); Hemoglobin 15.4 g/dl (14.0-18.0); Mean Corpuscular HGB Conc 34.8 g/dl (31.0-36.0); Mean Platelet Volume 10.9 fL (9.4-12.4); Platelet Count 242 X10*3/uL (160-400); Red Blood Count 5.14 X10*6/uL (4.60-5.80); Red Cell Distribution Width 12.6 % (11.0-16.0)
[2024-05-06 16:44] LABS: Alanine Aminotransferase 27 U/L (0-40); Albumin Level 4.6 g/dL (3.5-5.0); Alkaline Phosphatase 98 U/L (39-117); Anion Gap 11 (12-20); Aspartate Amino Transferase 25 U/L (5-37); Bilirubin Total 0.8 mg/dL (0.0-1.0); Blood Urea Nitrogen 15 mg/dL (9-16); Calcium 9.2 mg/dL (8.4-10.2); Carbon Dioxide 25 mmol/L (22-29); Chloride 108 mmol/L (96-108); Cholesterol 128 mg/dL (<200); Estimated Glomerular Filt Rate > 60; Glucose Fasting 72 mg/dL (60-99); HDL Cholesterol 43 mg/dL (>40); LDL Cholesterol Calculated 76 mg/dL (<100); Sodium 140 mmol/L (135-145); Total Protein 7.2 g/dL (6.5-8.0); Triglycerides 49 mg/dL (<150)
[2024-05-06 17:00] LABS: TSH reflex Free T4 1.88 uIU/mL (0.32-4.0)
[2024-05-14 22:49] LABS: Testosterone, Free 30.6 pg/mL (35.0-155.0); Testosterone, Total 259 ng/dL (250-1100)
== END 2024-05-06 15:17 | disposition home or self-care (01) ==
LOC: HO.LAB 15:16
PROVIDERS: PCP Nurse Practitioner Family; Referring Provider Nurse Practitioner Family; Visit Provider Urology
DX: Z00.00 Encounter for general adult medical examination without abnormal findings (principal); E29.1 Testicular hypofunction
CPT/HCPCS: 36415; 80053; 80061; 81003; 84402; 84403; 84443; 85027

== ENCOUNTER 2024-05-08 11:29 | Outpatient (AMB) | payer BC, SELFPAY ==
--- NOTE | 2024-05-08 11:31 | A.OFFVISCC_ITS ---
Intake Visit Reasons: MAT Allergies No Known Allergies Allergy (Verified 03/01/24 16:14) HPI HPI MAT: Details: Patient presents for follow up via telelhealth Continues to have dental work suboxone dose increased during this time to assist with discomfort klonopin dose currently 1.5mg daily--plan to decrease by 0.25mg encouraged to trial 0.5mg BID and 0.25mg mid day PFSH Medical History (Updated 03/01/24 @ 21:01 by Licha Stafford [facility]) Diverticulosis History of arthroplasty of finger (~2016) Obesity (BMI 30-39.9) Smoker Adrenal adenoma Osteoarthritis Hypotestosteronism Surgical History H/O colonoscopy History of total adrenalectomy H/O arthroscopy of left knee (~2010) Family History Father No problems noted. Mother No problems noted. 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 Cognitive needs: No Hearing needs: No Vision needs: No Review of Systems Const Reports as per HPI Telehealth Telehealth Telehealth Platform: Telephone Location of provider rendering services: practice address Location of patient: address on file Patient Identification confirmed using: Name, : Yes Telehealth method: voice only Patient verbally consented to treatment: Yes Patient verbally consented to billing insurance company: Yes Minutes spent on Phone/Video with Pt.: 20 Assessment & Plan Assessment & Plan (1) Opioid dependence: Code(s): F11.20 - Opioid dependence, uncomplicated Category: Medical Qualifiers: Substance use status: uncomplicated Qualified Code(s): F11.20 - Opioid dependence, uncomplicated Plan: * continue suboxone at 8mg BID (2) Benzodiazepine dependence: Code(s): F13.20 - Sedative, hypnotic or anxiolytic dependence, uncomplicated Category: Medical Plan: * decrease at next refill to 0.5mg BID and 0.25mg Medications: Refilled buprenorphine-naloxone 8-2 mg (Suboxone) 1 film buccal BID 60 ea 0RF
== END 2024-05-08 11:57 | disposition home or self-care (01) ==
PROVIDERS: PCP Nurse Practitioner Family; Visit Provider Nurse Practitioner Psychiatric/Mental Health
DX: F11.20 Opioid dependence, uncomplicated (principal); F13.20 Sedative, hypnotic or anxiolytic dependence, uncomplicated
CPT/HCPCS: 98967

== ENCOUNTER → 2024-05-08 11:29 | Outpatient (BNVA) | payer BC, SELFPAY | PROVIDERS: PCP Nurse Practitioner Family; Visit Provider Nurse Practitioner Psychiatric/Mental Health ==

== ENCOUNTER 2024-05-16 16:00 | Outpatient (AMB) | payer BC, SELFPAY ==
--- NOTE | 2024-05-16 07:38 | A.OFFPC_ITS ---
Intake Visit Reasons: lab review Allergies No Known Allergies Allergy (Verified 05/16/24 07:43) Tobacco use date assessed: 11/07/23 Dental Screening Dental Screen Date: 11/07/23 HPI lab review HPI Details Pt has a hx of benzodiazepine dependence. He is seeing addiction medicine for this, reports doing well. Pt is also following up with urology due to low testosterone. Pt was going to [facility] due to being bowlegged, now going to [place] (first appt next month). Labs were WNL. Denies fever, chills, and dizziness. PENDING SALE TO [facility] Medical History Diverticulosis History of arthroplasty of finger (~2016) Obesity (BMI 30-39.9) Smoker Adrenal adenoma Osteoarthritis Hypotestosteronism Surgical History H/O colonoscopy History of total adrenalectomy H/O arthroscopy of left knee (~2010) Family History Father No problems noted. Mother No problems noted. 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 Erickson Mcmullen, Anca Woo, Willi Chávez and colleagues, with an educational mayito from [employer]. Review of Systems Const Reports as per HPI Physical exam (Primary Care) Tobacco/Smoking Status: Tobacco use Status Tobacco use date assessed 11/07/23 05/16/24 07:40 Patient Tobacco Use Status Current everyday Tobacco 05/16/24 07:40 Tobacco use type Cigarette 05/16/24 07:40 e-Cigarette/Vaping Use Never Used 05/16/24 07:40 Thrive Assessment: Date of Thrive Assessment Date Thrive assessed 05/03/24 05/16/24 07:40 Const General: cooperative Orientation/consciousness: patient oriented x3 Neuro General: patient oriented x3 Psych Appearance: grossly normal Mental Status: mental status grossly normal Speech and movement: Clear speech present Affect: normal affect Attitude: cooperative Thought process: Normal thought process present Thought content: Normal thought content present Insight: Good insight present (Psych) Judgement: Good judgement present (Psych) Telehealth Telehealth Telehealth Platform: [employer] Location of provider rendering services: practice address Location of patient: address on file Patient Identification confirmed using: Name, : Yes Telehealth method: video Patient verbally consented to treatment: Yes Patient verbally consented to billing insurance company: Yes Patient informed of any privacy concerns related to visit: Yes Minutes spent on Phone/Video with Pt.: 10 Coding Level of Care Code Tele Est Pt Level 3 (37588) Diagnoses Benzodiazepine dependence F13.20 Bowing of leg M21.169 Hypotestosteronism E34.9 Assessment & Plan Assessment & Plan (1) Benzodiazepine dependence: Code(s): F13.20 - Sedative, hypnotic or anxiolytic dependence, uncomplicated Category: Medical Plan: Seeing addiction medicine (2) Bowing of leg: Comment: bilat Code(s): M21.169 - Varus deformity, not elsewhere classified, unspecified knee Category: Medical Plan: Seeing ortho in [place] (3) Hypotestosteronism: Code(s): E34.9 - Endocrine disorder, unspecified Category: Medical Plan: Seeing urology Plan The patient agreed to the use of a medical doctor md/medical director for this encounter. Scribed for SON Moon by yamilet Clayton scribe, on 05/16/2024 at 07:35 EST.
== END 2024-05-16 16:35 | disposition home or self-care (01) ==
LOC: HO.HMCC 16:00
PROVIDERS: PCP Nurse Practitioner Family; Visit Provider Nurse Practitioner Family
DX: E34.9 Endocrine disorder, unspecified (principal); M21.169 Varus deformity, not elsewhere classified, unspecified knee; F13.20 Sedative, hypnotic or anxiolytic dependence, uncomplicated

== ENCOUNTER → 2024-05-16 16:00 | Outpatient (BNVA) | payer BC, SELFPAY | PROVIDERS: PCP Nurse Practitioner Family; Visit Provider Nurse Practitioner Family | DX: F13.20 Sedative, hypnotic or anxiolytic dependence, uncomplicated (principal); M21.169 Varus deformity, not elsewhere classified, unspecified knee; E34.9 Endocrine disorder, unspecified ==

== ENCOUNTER 2024-06-05 08:53 | Outpatient (AMB) | payer BC, SELFPAY ==
--- NOTE | 2024-06-05 09:25 | A.OFFVISCC_ITS ---
Intake Visit Reasons: MAT Tele Allergies No Known Allergies Allergy (Verified 05/16/24 07:43) [facility] MAT Tele: Details: Patient presents for follow up via telehealth reporting anxiety related to dose decrease (Clonazepam) encouraged patient to attempt to shift focus to how he feels and schedule for medications goal for medication is 1mg daily discussed using other agents to address anxiety--patient agreeable to buspirone trial no issues related to suboxone PFSH Medical History Diverticulosis History of arthroplasty of finger (~2016) Obesity (BMI 30-39.9) Smoker Adrenal adenoma Osteoarthritis Hypotestosteronism Surgical History H/O colonoscopy History of total adrenalectomy H/O arthroscopy of left knee (~2010) Family History Father No problems noted. Mother No problems noted. 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 Cognitive needs: No Hearing needs: No Vision needs: No Review of Systems Const Reports as per [facility] Telehealth Telehealth Telehealth Platform: Telephone Location of provider rendering services: practice address Location of patient: address on file Patient Identification confirmed using: Name, : Yes Telehealth method: voice only Patient verbally consented to treatment: Yes Patient verbally consented to billing insurance company: Yes Minutes spent on Phone/Video with Pt.: 20 Assessment & Plan Assessment & Plan (1) Benzodiazepine dependence: Code(s): F13.20 - Sedative, hypnotic or anxiolytic dependence, uncomplicated Category: Medical Plan: * Klonopin dose at 0.5mg BID and 0.25mg QD * goal is to get to 1mg daily (2) Mixed anxiety depressive disorder: Code(s): F41.8 - Other specified anxiety disorders Category: Medical Plan: * buspirone 10mg BID (3) Opioid dependence: Code(s): F11.20 - Opioid dependence, uncomplicated Category: Medical Qualifiers: Substance use status: uncomplicated Qualified Code(s): F11.20 - Opioid dependence, uncomplicated Plan: * continue suboxone at current dose Medications: New buspirone 10 mg PO BID 60 tabs 0RF Refilled buprenorphine-naloxone 8-2 mg (Suboxone) 1 film buccal BID 60 ea 0RF
== END 2024-06-05 09:57 | disposition home or self-care (01) ==
PROVIDERS: PCP Nurse Practitioner Family; Visit Provider Nurse Practitioner Psychiatric/Mental Health
DX: F13.20 Sedative, hypnotic or anxiolytic dependence, uncomplicated (principal); F41.8 Other specified anxiety disorders; F11.20 Opioid dependence, uncomplicated
CPT/HCPCS: 99214

== ENCOUNTER → 2024-06-05 08:53 | Outpatient (BNVA) | payer BC, SELFPAY | PROVIDERS: PCP Nurse Practitioner Family; Visit Provider Nurse Practitioner Psychiatric/Mental Health ==

== ENCOUNTER 2024-06-12 15:05 | Outpatient (AMB) | payer BC, SELFPAY ==
--- NOTE | 2024-06-12 15:12 | MHC.OFFVIS ---
Intake Visit Reasons: 6m/Testosterone(set) Intake Note: Patient is present for Testosterone Results Urology Med: Testosterone Antibiotic Allergy: None Blood Thinner: None Recent Testosterone: 05/06/24 TOTAL TESTOSTERONE: 259 FREE TESTOSTERONE: 30.6 L Last PSA: 10/2023 0.47 Genetics Physician Required: No Accompanied by: Self / Same As Patient Allergies No Known Allergies Allergy (Verified 06/12/24 15:14) HPI Comments Details: Anish is a pleasant male. He is a patient of Dr Dias. He is seen for the following urologic conditions - hypogonadism - erectile dysfunction Follow-up Has run out of testosterone at time of lab work Also mentions erectile dysfunction Trial on demand tadalafil 10 mg Discussed timing Hypogonadism Current dose would 100 mg testosterone weekly subcutaneous Longstanding - presume secondary to oral opioid medication usage Insurance will not cover AndroGel Previously used testosterone IM every 2 weeks Laboratories - T 400, 08/03 T 456 , 04/04 T 800 1.3 46, 11/03 T 600 P 0.9 H 45, 05/06 T 540 P 1.3 H 47.8, 11/04 607 1.4 44, 05/07 260 30 Follow-up in 6 months with labs [facility] Medical History Diverticulosis History of arthroplasty of finger (~2016) Obesity (BMI 30-39.9) Smoker Adrenal adenoma Osteoarthritis Hypotestosteronism Surgical History H/O colonoscopy History of total adrenalectomy H/O arthroscopy of left knee (~2010) Family History Father No problems noted. Mother No problems noted. 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 Cognitive needs: No Hearing needs: No Vision needs: No Review of Systems Const Denies chills and Denies fever(s) Card Reports no additional complaints and Denies syncope Resp Denies cough GI Denies abdominal pain and Denies heartburn Reports as per HPI and Denies change in libido Neuro Denies syncope Psych Denies change in libido Endo Denies change in libido Physical Exam Const General: cooperative, healthy appearing, comfortable and no acute distress Orientation/consciousness: patient oriented x3 HEENT Face and sinus: Yes normal facial exam Mouth: moist mucous membranes Neck Neck: Yes normal visual inspection, Yes full ROM and Yes trachea midline Chest Chest palpation & inspection: normal inspection of the chest Resp Effort & Inspection: normal respiratory effort, able to speak in complete sentences and no respiratory distress GI Inspection: Yes normal to inspection Back/Spine/Pelvis Cervical Spine: normal cervical lordosis Thoracic/Lumbar Spine: thoracic and lumbar spine normal to inspection Skin General skin exam: no rashes or lesions noted Neuro General: patient oriented x3, gait normal, tone normal and moves all extremities Extrem General: Yes normal to inspection and Yes capillary refill normal Assessment & Plan Assessment & Plan (1) Hypogonadism in male: Code(s): E29.1 - Testicular hypofunction Category: Medical (2) Erectile dysfunction: Code(s): N52.9 - Male erectile dysfunction, unspecified Category: Medical Plan Trial tadalafil Prescription refill Six-month follow-up Orders: Orders Prostate Specific Antigen 6 Months E29.1 - Testicular hypofunction Testosterone, Total 6 Months E29.1 - Testicular hypofunction Complete Blood Count no Diff 6 Months E29.1 - Testicular hypofunction Medications: New tadalafil Take 90 minutes prior to intended activity [facility] DR33 [id number] 10 mg PO ONCE 30 days PRN 30 tabs 1RF sexual activity E29.1 - Testicular hypofunction, N52.9 - Male erectile dysfunction, unspecified Patient Instructions: Imaging studies, laboratory and physical exam results were discussed and reviewed in detail. No major barriers to patient understanding were identified. An opportunity to ask questions regarding the treatment plan was provided. All questions were answered. The patient expressed understanding and agreement with the above treatment plan. The patient is aware they should contact our office by phone for worsening of their current condition or the appearance of new urologic symptoms. Compliance is encouraged with any medications and followup testing that is ordered. It is a privilege to participate in the urologic care of your patient. If you have any questions or concerns regarding treatment for the above conditions, or other urologic issues, please do not hesitate to contact me. The office telephone contact is [phone]. This note is constructed using voice recognition software. While every effort has been made to ensure accuracy wood setter errors may have been included. Yours sincerely, Dr Jorge A Benoit MD, [facility] Providers of Expert, Compassionate Care for the Genitourinary System Coding Level of Care Code Est Pt Level 4 (62921) Diagnoses Hypogonadism in male E29.1 Erectile dysfunction N52.9
== END 2024-06-12 15:25 | disposition home or self-care (01) ==
LOC: HO.HUSH 15:06
PROVIDERS: PCP Nurse Practitioner Family; Visit Provider Urology
DX: E29.1 Testicular hypofunction (principal); N52.9 Male erectile dysfunction, unspecified
CPT/HCPCS: 99214

== ENCOUNTER → 2024-06-12 15:05 | Outpatient (BNVA) | payer BC, SELFPAY | PROVIDERS: PCP Nurse Practitioner Family; Visit Provider Urology ==

== ENCOUNTER → 2024-06-25 17:51 | Outpatient (BNV) | payer BC, SELFPAY | PROVIDERS: Emergency Provider Emergency Medicine; PCP Nurse Practitioner Family; Visit Provider Internal Medicine Cardiovascular Disease | DX: I49.1 Atrial premature depolarization (principal) | CPT/HCPCS: 93010 ==

== ENCOUNTER 2024-06-25 17:53 | Emergency (ER) | payer BC, SELFPAY ==
--- NOTE | 2024-06-25 | ECG_ITS ---
Test Reason : chest pain Blood Pressure : / mmHG Vent. Rate : 097 BPM Atrial Rate : 097 BPM P-R Int : 130 ms QRS Dur : 090 ms QT Int : 362 ms P-R-T Axes : 068 020 043 degrees QTc Int : 459 ms Sinus rhythm with Premature atrial complexes with Aberrant conduction Otherwise normal ECG No previous ECGs available Referred By: Generic ED Physician Electronically Signed By:Mckay Gilbert
[2024-06-25 18:58] VITALS: BP 135/74; PULSE 82; RESP 18; TEMP 36.9; O2SAT 96; BMI 29.5
[2024-06-25 22:30] VITALS: BP 122/73; PULSE 66; RESP 20; TEMP 36.4; O2SAT 97
[2024-06-26 00:58] VITALS: BP 127/80; PULSE 84; RESP 18; TEMP 36.4; O2SAT 100
--- NOTE | 2024-06-26 01:43 | ED_ITS ---
HPI - Anxiety General Chief Complaint: Anxiety Stated Complaint: Chest pain Time Seen by Provider: 06/26/24 01:29 Source: patient Mode of arrival: ambulatory Limitations: no limitations History of Present Illness ED Provider: lolis Rivas NP HPI narrative: Patient is a 49-year-old male with past medical history of anxiety, opioid use disorder on Suboxone, depression center to emergency department requesting medication refill for his clonazepam, endorses anxiety after having ran out of the medication yesterday, and has stressful upcoming events over the next few days and his life. Denies recreational drug usage. Denies SI/HI. Related Data Previous Rx's ?Medication ?Instructions ?Recorded insulin syringe-needle U-100 1 mL #30 ea 03/24/21 25 gauge x 5/8 (BD Insulin Syringe) needle (disp) 25 gauge 25 gauge x #100 ea 05/03/23 5/8 (BD Regular Bevel La Rose) syringe (disposable) 1 mL (BD #100 ea 05/03/23 Luer-Alejandra Syringe) clonazepam 0.5 mg tablet 0.25 mg (1/2 x 0.5 mg) PO DAILY 05/30/24 #15 tabs clonazepam 1 mg tablet 0.5 mg (1/2 x 1 mg) PO BID #30 tabs 05/30/24 needle (disp) 22 G 22 gauge x 1 #100 ea 05/30/24 buprenorphine 8 mg-naloxone 2 mg 1 film buccal BID #60 ea 06/05/24 sublingual film (Suboxone) buspirone 10 mg tablet 10 mg PO BID #60 tabs 06/05/24 tadalafil 10 mg tablet 10 mg PO ONCE PRN sexual activity 06/12/24 30 days #30 tabs testosterone cypionate 200 mg/mL 100 mg (0.5 mL) subcut QWEEK 28 06/12/24 intramuscular oil days #4 mL buprenorphine 4 mg-naloxone 1 mg 1 film buccal Q24H #21 ea 06/21/24 sublingual film (Suboxone) clonazepam 0.5 mg tablet 0.25 mg (1/2 x 0.5 mg) PO DAILY #2 06/26/24 tabs clonazepam 1 mg tablet 0.5 mg (1/2 x 1 mg) PO BID #3 tabs 06/26/24 Allergies Allergy/AdvReac Type Severity Reaction Status Date / Time No Known Allergies Allergy Verified 06/25/24 18:59 Review of Systems Review of Systems: Yes all other systems are reviewed and are negative [facility] Past Medical History Attestation statement: The following information was validated with the patient. Source: old records reviewed Medical History Diverticulosis History of arthroplasty of finger (~2016) Obesity (BMI 30-39.9) Smoker Adrenal adenoma Osteoarthritis Hypotestosteronism Surgical History H/O colonoscopy History of total adrenalectomy H/O arthroscopy of left knee (~2010) Family History Family History Father No problems noted. Mother No problems noted. 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 Anxious Eyes: Pupils equal, round and reactive to light.? ENT: Pharynx normal.?? Neck: Normal inspection.? Neck supple.?? CVS: Heart sounds normal. Normal heart rate and rhythm.? Pulses normal.?? Respiratory: No respiratory distress.? Lung sounds clear to auscultation bilaterally?? Abdomen: Soft and non-tender. Normoactive bowel sounds.? Skin: Skin warm and dry.? Normal skin color.? Extremities: No lower extremity edema.? Neuro: Moves all extremities spontaneously. Sensation intact bilaterally. No focal neuro deficits. Ambulates with normal steady gait. Medical Decision Making Medical Decision Making [facility] Narrative: Patient is a 49-year-old male with past medical history of anxiety, opioid use disorder on Suboxone, depression center to emergency department requesting medication refill for his clonazepam, endorses anxiety after having ran out of the medication yesterday, and has stressful upcoming events over the next few days and his life. Extensive review of his [facility] as well as most recent visits with addiction medicine Kyra Vega. His most recent visit with her was 06/05/2024, prior to this he was prescribed a total of 1.5 mg of clonazepam daily, at that visit it was discussed that he would decrease the dosing to 1.25 mg total daily. On 05/31/2025 he picked up prescription for a total of 37.5 mg, when calculating this out in consideration of the dosage change, it appears as though he would be due for new prescription as of this Monday06/28/2024. He states that as of Monday06/24/2024 he attempted to request a refill through the patient portal and reports that the pharmacy also placed a request for refill. It is unclear when he ran out of the medications. I discussed with patient I will provide him a prescription for 3 days' worth of dosing, but he needs to get in contact with his prescriber for further dosing. Differential Diagnosis Differential Diagnoses: The differential diagnosis associated with the presentation includes (See narrative above) External Record Review External record reviewed: Outpatient record and Other ([facility]) Chronic Conditions Patient?s care impacted by: Other (See narrative above) Discharge Plan Discharge Clinical Impression: Anxiety Patient Disposition: Home, Self-Care Instructions: Anxiety (ED) Additional Instructions: As discussed, I have sent a prescription to your pharmacy to cover 3 days worth of your dosing based on 1.25 mg total daily. It is imperative that you contact Orion Ang's office to facilitate your refills accordingly Prescriptions: New clonazepam 1 mg tablet 0.5 mg PO BID Qty: 3 0RF clonazepam 0.5 mg tablet 0.25 mg PO DAILY Qty: 2 0RF No Action (DME) needle (disp) 22 G 22 gauge x 1 needle See Rx Instructions .Route Qty: 100 0RF Rx Instructions: As directed clonazepam 0.5 mg tablet 0.25 mg PO DAILY Qty: 15 0RF clonazepam 1 mg tablet 0.5 mg PO BID Qty: 30 0RF buprenorphine-naloxone [Suboxone] 4-1 mg film 1 film buccal Q24H Qty: 21 0RF Rx Instructions: in addition to 8mg BID (total of 20mg daily) (DME) BD Insulin Syringe 1 mL 25 gauge x 5/8 syringe See Rx Instructions .MEDSUPPLY Qty: 30 0RF Rx Instructions: As directed (DME) BD Regular Bevel La Rose 25 gauge x 5/8 needle See Rx Instructions .MEDSUPPLY Qty: 100 0RF Rx Instructions: As directed - for testosterone subcutaneous injection (DME) BD Luer-Alejandra Syringe 1 mL syringe See Rx Instructions .MEDSUPPLY Qty: 100 0RF Rx Instructions: Testosterone injection weekly testosterone cypionate 200 mg/mL oil 100 mg subcut QWEEK 28 Days Qty: 4 5RF Rx Instructions: dispose of excess testosterone after injection tadalafil 10 mg tablet 10 mg PO ONCE PRN (Reason: sexual activity) 30 Days Qty: 30 1RF Rx Instructions: Take 90 minutes prior to intended activity [facility] Group [facility] DR33 [id number] buspirone 10 mg tablet 10 mg PO BID Qty: 60 0RF buprenorphine-naloxone [Suboxone] 8-2 mg film 1 film buccal BID Qty: 60 0RF Referrals: Kyra Vega, PENNY [Nurse Practitioner] - Print Language: Turkmen
[2024-06-26 02:05] VITALS: BP 127/80; PULSE 84; RESP 18; TEMP 36.4; O2SAT 100
== END 2024-06-26 02:06 | disposition home or self-care (01) ==
PROVIDERS: Emergency Provider Emergency Medicine; PCP Nurse Practitioner Family
DX: F41.9 Anxiety disorder, unspecified (principal); R07.89 Other chest pain; F11.10 Opioid abuse, uncomplicated; F17.210 Nicotine dependence, cigarettes, uncomplicated; Z76.0 Encounter for issue of repeat prescription
CPT/HCPCS: 93005; 99283

== ENCOUNTER 2024-07-03 10:26 | Outpatient (AMB) | payer BC, SELFPAY ==
--- NOTE | 2024-07-03 10:09 | MHC.AM.SUB ---
Intake Visit Reasons: MAT Tele Allergies No Known Allergies Allergy (Verified 06/25/24 18:59) [facility] MAT Tele: Details: Patient presents for follow up via telehealth Re: Suboxone. patient has been taking 20mg daily. Increased dose since dental work started. During visit he was considering trying to taper dose again t/w encouraged patient to hold off on this as he has been increasingly anxious and adjusting dosing may not be ideal at this time Patient agreeable Re: Clonazepam taper. Discussed with patient concern related to increase in sx presentation. Encouraged patient to seek out therapeutic provider as medications are not as effective if he does not develop additional coping strategies to address periods of increased stress. Patient agreeable Discussed not decreasing dose any further at this time, but also that at no time would extra medicaiton be sent to cover for extra doses taken. Patient verbalized understanding. Is taking buspirone--has not noted a difference one way or another Review of Systems Const Reports as per [facility] Telehealth Telehealth Telehealth Platform: Telephone Location of provider rendering services: practice address Location of patient: other Patient Identification confirmed using: Name, : Yes Telehealth method: voice only Patient verbally consented to treatment: Yes Patient verbally consented to billing insurance company: Yes Minutes spent on Phone/Video with Pt.: 25 Assessment & Plan Assessment & Plan (1) Opioid dependence: Code(s): F11.20 - Opioid dependence, uncomplicated Category: Medical Qualifiers: Substance use status: uncomplicated Qualified Code(s): F11.20 - Opioid dependence, uncomplicated Plan: continue suboxone at current dose will need refill for 4mg films (2) Generalized anxiety disorder: Code(s): F41.1 - Generalized anxiety disorder Category: Medical Plan: continue clonazepam 1.25mg daily patient will research providers to supplement current treatment for [place] (3) Benzodiazepine dependence: Code(s): F13.20 - Sedative, hypnotic or anxiolytic dependence, uncomplicated Category: Medical Plan: continue clonazepam as prescribed Medications: New buspirone 15 mg PO TID 90 tabs 0RF Refilled buprenorphine-naloxone 8-2 mg (Suboxone) 1 film buccal BID 60 ea 0RF buprenorphine-naloxone 8-2 mg (Suboxone) 1 film buccal BID 60 ea 0RF Discontinued buspirone Discontinued Reason: Doctor's Order 10 mg PO BID 60 tabs 0RF PFSH Medical History Diverticulosis History of arthroplasty of finger (~2016) Obesity (BMI 30-39.9) Smoker Adrenal adenoma Osteoarthritis Hypotestosteronism Surgical History H/O colonoscopy History of total adrenalectomy H/O arthroscopy of left knee (~2010) Family History Father No problems noted. Mother No problems noted. 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
== END 2024-07-03 10:26 | disposition home or self-care (01) ==
LOC: HO.HCC 10:26
PROVIDERS: PCP Nurse Practitioner Family; Visit Provider Nurse Practitioner Psychiatric/Mental Health
DX: F11.20 Opioid dependence, uncomplicated (principal); F41.1 Generalized anxiety disorder; F13.20 Sedative, hypnotic or anxiolytic dependence, uncomplicated
CPT/HCPCS: 99214

== ENCOUNTER 2024-07-31 13:23 | Outpatient (AMB) | payer BC, SELFPAY ==
--- NOTE | 2024-07-31 13:23 | A.OFFVISCC_ITS ---
Intake Visit Reasons: MAT Allergies No Known Allergies Allergy (Verified 06/25/24 18:59) [facility] MAT: Details: Patient presents for follow up via telehealth Reports he had a knee replacement yesterday Concerned about pain management and does not want to use oxycodone as prescribed by surgeon Requesting increase in suboxone --discussed frequent , smaller dosing --plan to increase to 24 mg Reports anxiety has improved over the last month--he feels stable on current dose of buspirone and Clonazepam Review of Systems Const Reports as per HPI Telehealth Telehealth Telehealth Platform: Telephone Location of provider rendering services: practice address Location of patient: address on file Patient Identification confirmed using: Name, : Yes Telehealth method: voice only Patient verbally consented to treatment: Yes Patient verbally consented to billing insurance company: Yes Minutes spent on Phone/Video with Pt.: 20 Assessment & Plan Assessment & Plan (1) Opioid dependence: Code(s): F11.20 - Opioid dependence, uncomplicated Category: Medical Qualifiers: Substance use status: uncomplicated Qualified Code(s): F11.20 - Opioid dependence, uncomplicated Plan: * increase suboxone to 24mg daily and re-evaluate next month (2) Generalized anxiety disorder: Code(s): F41.1 - Generalized anxiety disorder Category: Medical Plan: * no change to klonopin or buspirone Medications: Changed From buprenorphine-naloxone 8-2 mg (Suboxone) 1 film buccal BID 60 ea 0RF To buprenorphine-naloxone 8-2 mg (Suboxone) 1 film buccal TID 90 ea 0RF Refilled buspirone 15 mg PO TID 90 tabs 0RF Discontinued buprenorphine-naloxone 4-1 mg (Suboxone) in addition to 8mg BID (total of 20mg daily) Discontinued Reason: Doctor's Order 1 film buccal Q24H 30 ea 0RF PFSH Medical History Diverticulosis History of arthroplasty of finger (~2016) Obesity (BMI 30-39.9) Smoker Adrenal adenoma Osteoarthritis Hypotestosteronism Surgical History H/O colonoscopy History of total adrenalectomy H/O arthroscopy of left knee (~2010) Family History Father No problems noted. Mother No problems noted. 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
== END 2024-07-31 14:12 | disposition home or self-care (01) ==
PROVIDERS: PCP Nurse Practitioner Family; Visit Provider Nurse Practitioner Psychiatric/Mental Health
DX: F11.20 Opioid dependence, uncomplicated (principal); F41.1 Generalized anxiety disorder
CPT/HCPCS: 98967

== ENCOUNTER 2024-08-28 08:56 | Outpatient (AMB) | payer BC, SELFPAY ==
--- NOTE | 2024-08-28 08:59 | A.OFFVISCC_ITS ---
Intake Visit Reasons: Tele Allergies No Known Allergies Allergy (Verified 06/25/24 18:59) HPI HPI Tele: Details: Patient presents for follow up via telehealth Recovering from knee replacement--feeling better unable to go back to work yet--has to complete PT no pain , eager to get back to work Current suboxone dose 24mg daily (6mg 4x/day) feels it has been helpful with managing pain denies any sedation states he never had to take percocet or tramadol that were prescribed by surgeon taking stool softeners as needed Regarding anxiety current dose of Clonazepam 0.5mg in AM 0.5mg @2pm and 0.25mg at HS buspirone TID--discussed dosing to cover in btwn clonazepam feels anxiety is well managed at this time still some worry, but not unamanageable Review of Systems Const Reports as per HPI and Reports no additional complaints Telehealth Telehealth Telehealth Platform: Telephone Location of provider rendering services: practice address Location of patient: address on file Patient Identification confirmed using: Name, : Yes Telehealth method: voice only Patient verbally consented to treatment: Yes Patient verbally consented to billing insurance company: Yes Minutes spent on Phone/Video with Pt.: 20 PFSH Medical History Diverticulosis History of arthroplasty of finger (~2016) Obesity (BMI 30-39.9) Smoker Adrenal adenoma Osteoarthritis Hypotestosteronism Surgical History H/O colonoscopy History of total adrenalectomy H/O arthroscopy of left knee (~2010) Family History Father No problems noted. Mother No problems noted. 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 Cognitive needs: No Hearing needs: No Vision needs: No Assessment & Plan Assessment & Plan (1) Opioid dependence: Code(s): F11.20 - Opioid dependence, uncomplicated Category: Medical Qualifiers: Substance use status: uncomplicated Qualified Code(s): F11.20 - Opioid dependence, uncomplicated Plan: * continue suboxone at current dose --reassess dose after PT is complete (2) Generalized anxiety disorder: Code(s): F41.1 - Generalized anxiety disorder Category: Medical Plan: * continue clonazepam and buspirone * follow up 4 weeks Medications: Refilled buprenorphine-naloxone 12-3 mg (Suboxone) 1 film buccal BID 60 ea 0RF
== END 2024-08-28 09:23 | disposition home or self-care (01) ==
PROVIDERS: PCP Nurse Practitioner Family; Visit Provider Nurse Practitioner Psychiatric/Mental Health
DX: F11.20 Opioid dependence, uncomplicated (principal); F41.1 Generalized anxiety disorder
CPT/HCPCS: 98967

== ENCOUNTER → 2024-08-28 08:56 | Outpatient (BNVA) | payer BC, SELFPAY | PROVIDERS: PCP Nurse Practitioner Family; Visit Provider Nurse Practitioner Psychiatric/Mental Health ==

== ENCOUNTER 2024-10-16 08:49 | Outpatient (AMB) | payer BC, SELFPAY ==
--- NOTE | 2024-10-16 08:51 | A.OFFVISCC_ITS ---
Intake Visit Reasons: Tele Allergies No Known Allergies Allergy (Verified 06/25/24 18:59) HPI HPI Tele: Details: Patient presents for follow up via telehealth Currently prescribed Suboxone 12mg BID Tolerating current dose. Denies any side effects Back to work now, scheduled to have 2nd knee replacement 11/14 Discussed clonazepam. will send one month with 2 refills. 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 that he will seek out appt Reports anxiety is well managed with current doses Review of Systems Const Reports as per HPI and Reports no additional complaints Telehealth Telehealth Telehealth Platform: Telephone Location of provider rendering services: practice address Location of patient: address on file Patient Identification confirmed using: Name, : Yes Telehealth method: voice only Patient verbally consented to treatment: Yes Patient verbally consented to billing insurance company: Yes Minutes spent on Phone/Video with Pt.: 15 PFSH Medical History Diverticulosis History of arthroplasty of finger (~2016) Obesity (BMI 30-39.9) Smoker Adrenal adenoma Osteoarthritis Hypotestosteronism Surgical History H/O colonoscopy History of total adrenalectomy H/O arthroscopy of left knee (~2010) Family History Father No problems noted. Mother No problems noted. 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 Cognitive needs: No Hearing needs: No Vision needs: No Assessment & Plan Assessment & Plan (1) Opioid dependence: Code(s): F11.20 - Opioid dependence, uncomplicated Category: Medical Qualifiers: Substance use status: uncomplicated Qualified Code(s): F11.20 - Opioid dependence, uncomplicated Plan: * continue suboxone at current dose (2) Generalized anxiety disorder: Code(s): F41.1 - Generalized anxiety disorder Category: Medical Plan: * continue clonazepam at current dose * one month with 2 refills sent in to pharmacy * patient to seek out ongoing provider for BH support Medications: Refilled clonazepam 0.5 mg orally take 1 tab in the morning and 1 tab in the evening. Take 1/2 tab mid day; Total of 1.25mg daily 75 tabs 2RF
== END 2024-10-16 09:10 | disposition home or self-care (01) ==
PROVIDERS: PCP Nurse Practitioner Family; Visit Provider Nurse Practitioner Psychiatric/Mental Health
DX: F11.20 Opioid dependence, uncomplicated (principal); F41.1 Generalized anxiety disorder
CPT/HCPCS: 98967

== ENCOUNTER 2024-12-05 08:47 | Outpatient (REF) | payer BC, SELFPAY ==
[2024-12-05 09:44] LABS: Hematocrit 35.4 % (42.0-52.0); Hemoglobin 11.8 g/dl (14.0-18.0); Mean Corpuscular HGB Conc 33.3 g/dl (31.0-36.0); Mean Corpuscular Hemoglobin 28.6 pg (27.0-33.0); Mean Corpuscular Volume 85.9 fL (80.0-98.0); Mean Platelet Volume 10.2 fL (9.4-12.4); Platelet Count 366 X10*3/uL (160-400); Red Blood Count 4.12 X10*6/uL (4.60-5.80); White Blood Count 5.3 X10*3/uL (4.8-10.8)
[2024-12-05 10:33] LABS: Prostate Specific Antigen 1.83 ng/mL (<0.05-4.0)
[2024-12-11 09:39] LABS: Testosterone, Free 105.8 pg/mL (35.0-155.0); Testosterone, Total 752 ng/dL (250-1100)
== END 2024-12-05 08:48 | disposition home or self-care (01) ==
LOC: HO.LAB 08:47
PROVIDERS: PCP Nurse Practitioner Family; Visit Provider Urology
DX: E29.1 Testicular hypofunction (principal); Z12.5 Encounter for screening for malignant neoplasm of prostate
CPT/HCPCS: 36415; 84153; 84402; 84403; 85027

== ENCOUNTER → 2024-12-16 15:52 | Outpatient (BNVA) | payer BC, SELFPAY | PROVIDERS: PCP Nurse Practitioner Family; Visit Provider Nurse Practitioner Family | DX: Z00.01 Encounter for general adult medical examination with abnormal findings (principal); F11.20 Opioid dependence, uncomplicated; Z96.651 Presence of right artificial knee joint | CPT/HCPCS: 96127 ==

== ENCOUNTER 2024-12-23 16:22 | Outpatient (AMB) | payer BC, SELFPAY ==
[2024-12-23 16:54] VITALS: BP 120/68; PULSE 68; O2SAT 99
--- NOTE | 2024-12-23 16:54 | A.OFFVISCC_ITS ---
Vital Signs 12/23/24 16:54 BP 120/68 Blood Pressure Location Rt brachial Position Sitting Pulse 68 Pulse Source Pulse Oximeter Pulse Oximetry (%) 99 Intake Visit Reasons: MAT Allergies No Known Allergies Allergy (Verified 12/16/24 15:58) HPI Comments Details: He had right knee replacement 4/3 He feels better but still trouble walking. He takes Clonipin and Suboxone 12/3 daily and clonazepam 1.25 daily with .5 bid and 1/2 of .5 at noon. Review of Systems Const All systems reviewed & are unremarkable except as noted in HPI and below Physical Exam Vital Signs: Last Vital Signs Pulse 68 12/23/24 16:54 BP 120/68 12/23/24 16:54 Pulse Ox 99 12/23/24 16:54 PFSH Medical History Diverticulosis History of arthroplasty of finger (~2016) Obesity (BMI 30-39.9) Smoker Adrenal adenoma Osteoarthritis Hypotestosteronism Surgical History H/O colonoscopy History of total adrenalectomy H/O arthroscopy of left knee (~2010) Family History Father No problems noted. Mother No problems noted. 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 Cognitive needs: No Hearing needs: No Vision needs: No Assessment & Plan Assessment & Plan (1) Benzodiazepine dependence: Comment: He is doing well Code(s): F13.20 - Sedative, hypnotic or anxiolytic dependence, uncomplicated Category: Medical Plan: Continue clonazepam and Suboxone (he did take kratom in past and now on no other pain meds) See televisit in two months and then in person two months after (2) Opioid dependence: Code(s): F11.20 - Opioid dependence, uncomplicated Category: Medical Qualifiers: Substance use status: uncomplicated Qualified Code(s): F11.20 - Opioid dependence, uncomplicated Plan: na Medications: New buprenorphine-naloxone 12-3 mg (Suboxone) place 1 strip/tab under (each) side of tongue 2 film buccal Q24H 60 ea 1RF 30 days clonazepam one .5mg tab in am,1/2 tab (.25) mid day and .5mg (1 tab) in evening 1.25 mg (2.5 x 0.5 mg) PO DAILY 75 tabs 1RF 30 days
== END 2024-12-23 16:30 ==
LOC: HO.HID 16:22
PROVIDERS: PCP Nurse Practitioner Family; Visit Provider Internal Medicine
DX: F13.20 Sedative, hypnotic or anxiolytic dependence, uncomplicated (principal); F11.20 Opioid dependence, uncomplicated
CPT/HCPCS: 99213

== ENCOUNTER → 2024-12-23 16:22 | Outpatient (BNVA) | payer BC, SELFPAY | PROVIDERS: PCP Nurse Practitioner Family; Visit Provider Internal Medicine | DX: F11.20 Opioid dependence, uncomplicated (principal); F41.1 Generalized anxiety disorder ==

== ENCOUNTER 2024-12-25 08:36 | Outpatient (AMB) | payer BC, SELFPAY ==
--- NOTE | 2024-12-25 08:36 | MHC.OFFVIS ---
Intake Visit Reasons: 6m/PSA/Testo(testo pending) Intake Note: Patient is present for 6M/PSA/TSETO Urology Medication:TESTOSTERONE Antibiotic Allergy:NONE Blood Thinner:NONE Furnace Stock Inspector Required: No Allergies No Known Allergies Allergy (Verified 12/25/24 08:37) HPI Comments Details: Anish is a pleasant male. He is a patient of Dr Dias. He is seen for the following urologic conditions - hypogonadism - erectile dysfunction Telemedicine Evaluation 15 min Consultation [facility] Video Follow-up Has run out of testosterone at time of lab work Also mentions erectile dysfunction Trial on demand tadalafil 10 mg Discussed timing Hypogonadism Current dose would 100 mg testosterone weekly subcutaneous Longstanding - presume secondary to oral opioid medication usage Insurance will not cover AndroGel Previously used testosterone IM every 2 weeks Laboratories - T 400, 08/03 T 456 , 04/04 T 800 1.3 46, 11/03 T 600 P 0.9 H 45, 05/06 T 540 P 1.3 H 47.8, 11/04 607 1.4 44, 05/07 260 30, 12/06 752 Th Follow-up in 6 months with labs [facility] Medical History Diverticulosis History of arthroplasty of finger (~2016) Obesity (BMI 30-39.9) Smoker Adrenal adenoma Osteoarthritis Hypotestosteronism Surgical History H/O colonoscopy History of total adrenalectomy H/O arthroscopy of left knee (~2010) Family History Father No problems noted. Mother No problems noted. 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 Cognitive needs: No Hearing needs: No Vision needs: No Review of Systems Const All systems reviewed & are unremarkable except as noted in HPI and below Reports no additional complaints Resp Reports no additional complaints GI Reports no additional complaints Reports as per HPI Musc Reports no additional complaints Physical Exam Telemedicine evaluation Appropriate responses Regular breathing rate and rhythm HEENT Head: Yes normal to inspection Ears: hearing grossly normal bilaterally Eyes General: appearance normal, both eyes and all related structures Neck Neck: Yes normal visual inspection Chest Chest palpation & inspection: normal inspection of the chest Resp Effort & Inspection: normal respiratory effort and able to speak in complete sentences Telehealth Telehealth Telehealth Platform: [facility] Location of provider rendering services: practice address Location of patient: address on file Patient Identification confirmed using: Name, : Yes Telehealth method: video Patient verbally consented to treatment: Yes Patient verbally consented to billing insurance company: Yes Patient informed of any privacy concerns related to visit: Yes Minutes spent on Phone/Video with Pt.: 15 Assessment & Plan Assessment & Plan (1) Erectile dysfunction: Code(s): N52.9 - Male erectile dysfunction, unspecified Category: Medical (2) Hypogonadism in male: Code(s): E29.1 - Testicular hypofunction Category: Medical Plan Six-month follow-up lab work Orders: Orders Prostate Specific Antigen 6 Months E29.1 - Testicular hypofunction Testosterone, Total 6 Months E29.1 - Testicular hypofunction Complete Blood Count no Diff 6 Months E29.1 - Testicular hypofunction Medications: New syringe (disposable) (BD Luer-Alejandra Syringe) Testosterone injection weekly 30 ea 0RF E29.1 - Testicular hypofunction, E34.9 - Endocrine disorder, unspecified needle (disp) 18 G (BD Regular [place]) As directed - draw up testosterone 30 ea 0RF E29.1 - Testicular hypofunction needle (disp) 23 gauge (BD Regular [place]) Inject testosterone subcutaneous 30 ea 0RF E29.1 - Testicular hypofunction, R79.89 - Other specified abnormal findings of blood chemistry Changed From testosterone cypionate dispose of excess testosterone after injection 100 mg (0.5 mL) subcut QWEEK 28 days 4 mL 5RF E29.1 - Testicular hypofunction To testosterone cypionate multiuse vial 100 mg (0.5 mL) subcut QWEEK 10 mL 1RF 20 weeks E29.1 - Testicular hypofunction Discontinued insulin syringe-needle U-100 (BD Insulin Syringe) Discontinued Reason: Patient Completed Course As directed 30 ea 0RF E29.1 - Testicular hypofunction needle (disp) 25 gauge (BD Regular [place]) Discontinued Reason: Patient Completed Course As directed - for testosterone subcutaneous injection 100 ea 0RF E29.1 - Testicular hypofunction needle (disp) 22 G Discontinued Reason: Patient Completed Course As directed 100 ea 0RF E29.1 - Testicular hypofunction Patient Instructions: This note is constructed using voice recognition software. While every effort has been made to ensure accuracy neon tube bender errors may have been included. Imaging studies, laboratory and physical exam results were discussed and reviewed in detail. No major barriers to patient understanding were identified. An opportunity to ask questions regarding the treatment plan was provided. All questions were answered. The patient expressed understanding and agreement with the above treatment plan. The patient is aware they should contact our office by phone for worsening of their current condition or the appearance of new urologic symptoms. Compliance is encouraged with any medications and followup testing that is ordered. It is a privilege to participate in the urologic care of your patient. If you have any questions or concerns regarding treatment for the above conditions, or other urologic issues, please do not hesitate to contact me. The office telephone contact is [phone]. Sincerely, Dr Jorge A Benoit MD, [facility] - Urology Compassionate Specialist Care for the Genitourinary System Coding Level of Care Code Tele Est Pt Level 3 (78599) Diagnoses Erectile dysfunction N52.9 Hypogonadism in male E29.1
== END 2024-12-25 09:14 | disposition home or self-care (01) ==
LOC: HO.HUSH 08:36
PROVIDERS: PCP Nurse Practitioner Family; Visit Provider Urology
DX: N52.9 Male erectile dysfunction, unspecified (principal); E29.1 Testicular hypofunction
CPT/HCPCS: 99213

== ENCOUNTER → 2024-12-25 08:36 | Outpatient (BNVA) | payer BC, SELFPAY | PROVIDERS: PCP Nurse Practitioner Family; Visit Provider Urology ==

== ENCOUNTER 2025-02-26 15:47 | Outpatient (AMB) | payer BC, SELFPAY ==
[2025-02-26 16:01] VITALS: BP 150/80; PULSE 104; O2SAT 98
--- NOTE | 2025-02-26 16:01 | MHC.OFFVIS ---
Vital Signs 02/26/25 16:01 Weight 197 lb BP 150/80 H Pulse 104 H Pulse Oximetry (%) 98 Intake Visit Reasons: MAT Allergies No Known Allergies Allergy (Verified 02/26/25 16:02) HPI Comments Details: He has no complaints. He feels well. COUNT INCLUDES THE [facility] Medical History Diverticulosis History of arthroplasty of finger (~2016) Obesity (BMI 30-39.9) Smoker Adrenal adenoma Osteoarthritis Hypotestosteronism Surgical History H/O colonoscopy History of total adrenalectomy H/O arthroscopy of left knee (~2010) Family History Father No problems noted. Mother No problems noted. 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 Cognitive needs: No Hearing needs: No Vision needs: No Review of Systems Const All systems reviewed & are unremarkable except as noted in HPI and below Physical Exam Vital Signs: Last Vital Signs Pulse 104 H 02/26/25 16:01 BP 150/80 H 02/26/25 16:01 Pulse Ox 98 02/26/25 16:01 Const General: cooperative Assessment & Plan Assessment & Plan (1) Opioid dependence: Comment: He is doing well Code(s): F11.20 - Opioid dependence, uncomplicated Category: Medical Qualifiers: Substance use status: uncomplicated Qualified Code(s): F11.20 - Opioid dependence, uncomplicated Plan: Continue current dosing See as scheduled. Medications: New buprenorphine-naloxone 12-3 mg (Suboxone) 1 film sublingual BID 60 ea 2RF 30 days Refilled clonazepam one .5mg tab in am,1/2 tab (.25) mid day and .5mg (1 tab) in evening 1.25 mg (2.5 x 0.5 mg) PO DAILY 75 tabs 2RF 30 days Coding Level of Care Code Est Pt Level 3 (73900) Diagnoses Uncomplicated opioid dependence F11.20 Substance use status: uncomplicated
== END 2025-02-26 16:25 | disposition home or self-care (01) ==
LOC: HO.HCC 15:47
PROVIDERS: PCP Nurse Practitioner Family; Visit Provider Internal Medicine
DX: F11.20 Opioid dependence, uncomplicated (principal)
CPT/HCPCS: 99213

== ENCOUNTER 2025-05-28 15:37 | Outpatient (AMB) | payer BC, SELFPAY ==
--- NOTE | 2025-05-28 15:53 | A.OFFVIS_ITS ---
Vital Signs 05/28/25 15:55 Height 5 ft 10 in Weight 201 lb BMI 28.8 Pulse 78 Pulse Source Pulse Oximeter Pulse Oximetry (%) 98 Oxygen Delivery Method Room Air Intake Visit Reasons: MAT Allergies No Known Allergies Allergy (Verified 05/28/25 15:55) HPI Comments Details: History of Present Illness The patient is a 50-year-old male presenting with opioid use disorder. He has made progress in reducing his opioid dose from 12 mg/3 mg taken twice daily to 8 mg/2 mg, intending to continue decreasing under medical supervision. He expressed a desire to discontinue medication-assisted treatment and is con sidering injection therapy. Additionally, the patient uses benzodiazepines to manage an anxiety disorder and wishes to consult with a psychiatrist to stabilize this condition further. Both his opioid use disorder and anxiety disorder impressions are stable, with recommendation for a one-month prescription of 8 mg/2 mg twice daily. Review of Systems - Psychiatric: Reports anxiety disorder and use of benzodiazepines. Physical Exam Results Plan Patient was informed and verbally consented to the use of an ambient scribe for clinic note documentation during this visit. 1. Opioid Use Disorder The patient is reducing opioid usage and has been given a prescription of 8/2 mg twice daily for one month. A transition to injection therapy is a potential consideration during follow-up. 2. Anxiety Disorder Anxiety disorder is currently managed with benzodiazepines, with a recommendation for psychiatric consultation for further stabilization and treatment planning. Discussion Notes During the visit, we discussed the patient's progress with opioid dose reduction. We considered transitioning to injection therapy as a potential option upon stabilization of his reduced dosage. The patient received a prescription for reduced dose medication supply for one month. Additionally, the importance of psychiatric consultation for his coexisting anxiety disorder was discussed to ensure comprehensive management. Follow-up appointments will be necessary to monitor the tapering process and to reassess the readiness for further treatment adjustments, including the potential use of injection therapy. Medical Decision Making The clinical goal is to support the patient's progress in reducing his opioid intake safely while maintaining stabilization of his anxiety disorder. Co ntinuation of a lower opioid dosage for one month was deemed appropriate, given the patient's successful tapering to date. Consideration of injection therapy for opioid use is contingent upon future evaluations and the patient's readiness. The recommendation for psychiatric consultation was made to evaluate the effectiveness and need for adjustments in managing his anxiety disorder. The plan aims to balance treatment needs, patient readiness, and medical safety. Patient Instructions - Take the prescribed opioid medication (8/2 mg) twice daily for the next month. - Schedule a follow-up appointment in one month to evaluate treatment progress. - Seek psychiatric consultation for anxiety disorder management. - Continue current benzodiazepine regimen as directed unless advised otherwise by a psychiatrist. [facility] Medical History Diverticulosis History of arthroplasty of finger (~2016) Obesity (BMI 30-39.9) Smoker Adrenal adenoma Osteoarthritis Hypotestosteronism Surgical History H/O colonoscopy History of total adrenalectomy H/O arthroscopy of left knee (~2010) Family History Father No problems noted. Mother No problems noted. 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 Cognitive needs: No Hearing needs: No Vision needs: No Physical Exam Vital Signs: Last Vital Signs Pulse 78 05/28/25 15:55 Pulse Ox 98 05/28/25 15:55 Oxygen Delivery Method Room Air 05/28/25 15:55 BMI result Body Mass Index 28.8 Assessment & Plan Assessment & Plan (1) Generalized anxiety disorder: Code(s): F41.1 - Generalized anxiety disorder Category: Medical (2) Opioid dependence: Comment: He is doing well Code(s): F11.20 - Opioid dependence, uncomplicated Category: Medical Qualifiers: Substance use status: uncomplicated Qualified Code(s): F11.20 - Opioid dependence, uncomplicated (3) Benzodiazepine dependence: Comment: He is doing well Code(s): F13.20 - Sedative, hypnotic or anxiolytic dependence, uncomplicated Category: Medical Plan as above Medications: New buprenorphine-naloxone 8-2 mg (Suboxone) 1 film sublingual BID 60 ea 0RF 30 days Refilled clonazepam one .5mg tab in am,1/2 tab (.25) mid day and .5mg (1 tab) in evening 1.25 mg (2.5 x 0.5 mg) PO DAILY 75 tabs 2RF 30 days Coding Level of Care Code Est Pt Level 3 (77748) Diagnoses Generalized anxiety disorder F41.1 Uncomplicated opioid dependence F11.20 Substance use status: uncomplicated Benzodiazepine dependence F13.20
[2025-05-28 15:55] VITALS: PULSE 78; O2SAT 98; BMI 28.8
== END 2025-05-28 16:29 | disposition home or self-care (01) ==
LOC: HO.HCC 15:37
PROVIDERS: PCP Nurse Practitioner Family; Visit Provider Internal Medicine
DX: F41.1 Generalized anxiety disorder (principal); F11.20 Opioid dependence, uncomplicated; F13.20 Sedative, hypnotic or anxiolytic dependence, uncomplicated
CPT/HCPCS: 99213

== ENCOUNTER 2025-06-23 09:37 | Outpatient (AMB) | payer BC, SELFPAY ==
[2025-06-23 09:47] VITALS: BP 146/80; PULSE 76; O2SAT 97
--- NOTE | 2025-06-23 09:47 | MHC.OFFVIS ---
Vital Signs 06/23/25 09:47 BP 146/80 H Pulse 76 Pulse Oximetry (%) 97 Intake Visit Reasons: MAT Allergies No Known Allergies Allergy (Verified 06/23/25 09:48) HPI Comments Details: History of Present Illness The patient is a 50-year-old male presenting with management needs for Opioid Use Disorder, currently treated with Suboxone (Buprenorphine). He expresses interest in tapering off Suboxone to transition to a new medication for continued management of his condition. His opioid dependence has been previously noted, and he reports stability in his current regimen but desires to move forward with new therapeutic strategies. The patient was awaiting direction regarding the initiation of this transition with the use of an injectable alternative, demonstrating a longstanding interest in advancing his treatment plan. Review of Systems - General: Denies recent weight changes, fever, chills. - Psychiatric: Reports interest in changing medication regimen for opioid dependence management. - Neurological: Denies headaches, dizziness. Physical Exam - Vital Signs- Stable. Results Plan Patient was informed and verbally consented to the use of an ambient scribe for clinic note documentation during this visit. 1. Opioid Use Disorder The current plan involves transitioning the patient from Suboxone 8/2 mg BID to Brixadi 96 mg every 28 days, a decision made to aid the patient's tapering and management of opioid dependence. The transition plan includes monitoring and follow-up once the new medication is available to ensure controlled management of symptoms and effectiveness. 2. Dependence On Suboxone Buprenorphine Until Brixadi is available, the patient remains on the stable regimen of Suboxone 8/2 mg BID. I discussed the rationale, addressing his desire for tapering and sustaining therapeutic effectiveness, with a follow-up planned to monitor symptoms during and post-transition. Discussion Notes I thoroughly discussed with the patient the management and transition options for his Opioid Use Disorder, stressing the clinical reasoning for initiating Brixadi. We reviewed the benefits of transitioning, focusing on monthly dosing that offers adherence and consistent opioid blockade. I ensured he understands that the switch is based on his stable current regimen and desire to taper off Suboxone while sustaining opioid receptor blockage. I clarified the potential side effects, importance of adherence, and ongoing symptom monitoring, gaining the patient's consent for the plan. Medical Decision Making Today's decision to transition from Suboxone to Brixadi was predicated on the patient's existing Opioid Use Disorder management needs and his expressed intent to taper effectively. The clinical goal includes maintaining therapeutic opioid receptor engagement to prevent relapse while reducing Suboxone dependency. I considered therapeutic efficacy, patient adherence potential, and the logistical aspects of evolving to monthly dosing. The expected outcome post-transition involves maintaining stability while gradually reducing dependency, thereby validating the change in regimen. Patient Instructions - Continue taking Suboxone 8/2 mg twice a day as prescribed until Brixadi is available. - Await further instructions regarding scheduling for the Brixadi injection, expected to occur every 28 days. - Return to the clinic for follow-up once Brixadi becomes available to monitor the transition. - Report any withdrawal symptoms or concerns promptly. [facility] Medical History Diverticulosis History of arthroplasty of finger (~2016) Obesity (BMI 30-39.9) Smoker Adrenal adenoma Osteoarthritis Hypotestosteronism Surgical History H/O colonoscopy History of total adrenalectomy H/O arthroscopy of left knee (~2010) Family History Father No problems noted. Mother No problems noted. 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 Cognitive needs: No Hearing needs: No Vision needs: No Physical Exam Vital Signs: Last Vital Signs Pulse 76 06/23/25 09:47 BP 146/80 H 06/23/25 09:47 Pulse Ox 97 06/23/25 09:47 Assessment & Plan Assessment & Plan (1) Opioid dependence: Comment: He is doing well Code(s): F11.20 - Opioid dependence, uncomplicated Category: Medical Qualifiers: Substance use status: uncomplicated Qualified Code(s): F11.20 - Opioid dependence, uncomplicated Plan: as above Medications: New buprenorphine-naloxone 8-2 mg (Suboxone) 1 film sublingual BID 60 ea 0RF 30 days buprenorphine ER (Brixadi Monthly) 96 mg (0.27 mL) subcut Q28D 30 days 0.54 mL 2RF buprenorphine ER (Brixadi Monthly) 96 mg (0.27 mL) subcut Q28D 28 days 0.27 mL 2RF buprenorphine ER (Brixadi Monthly) 96 mg (0.27 mL) subcut Q28D 30 days 0.54 mL 2RF buprenorphine ER (Brixadi Monthly) 96 mg (0.27 mL) subcut Q28D 0.27 mL 2RF 28 days Coding Level of Care Code Est Pt Level 3 (23824) Diagnoses Uncomplicated opioid dependence F11.20 Substance use status: uncomplicated
== END 2025-06-23 10:43 | disposition home or self-care (01) ==
LOC: HO.HCC 09:38
PROVIDERS: PCP Nurse Practitioner Family; Visit Provider Internal Medicine
DX: F11.20 Opioid dependence, uncomplicated (principal)
CPT/HCPCS: 99213

== ENCOUNTER 2025-07-08 15:38 | Outpatient (AMB) | payer BC, SELFPAY ==
[2025-07-08 16:03] VITALS: BP 112/60; PULSE 76; O2SAT 96
--- NOTE | 2025-07-08 16:03 | AM.OFFVISNUR ---
Vital Signs 07/08/25 16:03 BP 112/60 Pulse 76 Pulse Oximetry (%) 96 Intake Visit Reasons: Brixadi injection Allergies No Known Allergies Allergy (Verified 07/08/25 16:03) Nursing Note Anish is present for his first Brixadi injection, he has been in sustained recovery on for the past 3.5 years. Anish is alert, oriented, cooperative and presents with appropriate affect. Anish was given thorough education on Brixadi during last visit and all information was reviewed and all questions asked and answered prior to injection. Anish had a referral for [facility] placed a couple of weeks ago and has some SL left if symptoms occur prior to next injection; will call if any questions or concerns. Follow-up made in 4 weeks for the next injection. Office Meds buprenorphine 96 mg/0.27 mL solution,exten.rel.subcutaneous syringe Performing Provider: Sulma Garcia MD Performing Location: [facility] [place] Administered by: Anamaria Alcantara RN on 07/08/25 16:33 Dose Route Admin Location Dispensed Lot Number Expiration Date [facility] Server Administrator 96 mg subcut INOCENC[employer] 0.27 mL [id number] 05/13/26 89282-532-07 [employer]. Total Dispensed Waste 0.27 mL 0 % Comments: Pt here for first Brixadi 96 mg injection. Pt education performed and pt tolerated injection well. Educated on signs and symptoms of infection and encouraged to call [facility] with any related questions or concerns, pt verbalized understanding. Follow-up scheduled in 4 weeks for next injection. Assessment & Plan Assessment & Plan Orders: Orders AMB Buprenorphine Injection - Patient Supplied Today F11.21 - Opioid dependence, in remission Coding
== END 2025-07-08 16:52 | disposition home or self-care (01) ==
LOC: HO.HCC 15:38
PROVIDERS: PCP Nurse Practitioner Family
DX: F11.21 Opioid dependence, in remission (principal)

== ENCOUNTER → 2025-07-08 15:38 | Outpatient (BNVA) | payer BC, SELFPAY | PROVIDERS: PCP Nurse Practitioner Family | DX: F11.21 Opioid dependence, in remission (principal) | CPT/HCPCS: 96372; J0578 ==

== ENCOUNTER 2025-08-04 09:39 | Outpatient (REF) | payer BC, SELFPAY ==
[2025-08-04 10:44] LABS: Hematocrit 38.7 % (42.0-52.0); Hemoglobin 12.6 g/dl (14.0-18.0); Mean Corpuscular HGB Conc 32.6 g/dl (31.0-36.0); Mean Corpuscular Hemoglobin 28.4 pg (27.0-33.0); Mean Corpuscular Volume 87.4 fL (80.0-98.0); NRBC Abs Auto 0.000 X10*3/uL (0.0-0.012); NRBC Pct Auto 0.0 /100WBC (0.0-0.2); Platelet Count 280 X10*3/uL (160-400); Red Blood Count 4.43 X10*6/uL (4.60-5.80); White Blood Count 6.4 X10*3/uL (4.8-10.8)
[2025-08-04 11:33] LABS: Prostate Specific Antigen 1.37 ng/mL (<0.05-4.0)
== END 2025-08-04 09:40 | disposition home or self-care (01) ==
LOC: HO.LAB 09:39
PROVIDERS: PCP Nurse Practitioner Family; Visit Provider Urology
DX: E29.1 Testicular hypofunction (principal); Z12.5 Encounter for screening for malignant neoplasm of prostate
CPT/HCPCS: 36415; 84153; 84403; 85027; 96372; J0578

== ENCOUNTER 2025-08-04 09:55 | Outpatient (AMB) | payer BC, SELFPAY ==
--- NOTE | 2025-08-04 09:26 | AM.OFFVISNUR ---
Vital Signs 08/04/25 10:15 Height 5 ft 10 in Weight 89.358 kg BMI 28.3 BP 120/70 Blood Pressure Location Lt brachial Position Sitting Pulse 88 Pulse Source Pulse Oximeter Intake Visit Reasons: MAT Injection Allergies No Known Allergies Allergy (Verified 08/04/25 10:15) Nursing Note Anish is present for his second Brixadi 96 mg injection, he has been in sustained recovery on for the past 3.5 years. Anish is alert, oriented, cooperative and presents with appropriate affect. Anish reported symptoms requiring SL strips over the past few days, (interrupted sleep, increased anxiety) updated provider- will send in bridge and reach out to [employer] for injection induction protocol related to Brixadi. follow up in 4 weeks for the next injection. Office Meds buprenorphine 96 mg/0.27 mL solution,exten.rel.subcutaneous syringe Performing Provider: Sulma Garcia MD Performing Location: [facility] Administered by: Anamaria Alcantara RN on 08/04/25 10:43 Dose Route Admin Location Dispensed Lot Number Expiration Date [facility] Drop Tester 96 mg subcut BAIRON 0.27 mL [id number] 01/11/27 40322-959-74 [employer]. Total Dispensed Waste 0.27 mL 0 % Comments: Pt here for Brixadi 96 mg injection. Pt denies any concern with previous injections and tolerated injection well. Educated on signs and symptoms of infection and encouraged to call [facility] with any related questions or concerns, pt verbalized understanding. Follow-up scheduled in 4 weeks for next injection. Assessment & Plan Assessment & Plan Orders: Orders AMB Buprenorphine Injection - Patient Supplied Today F11.21 - Opioid dependence, in remission Coding
[2025-08-04 10:15] VITALS: BP 120/70; PULSE 88; BMI 28.3
== END 2025-08-04 10:39 | disposition home or self-care (01) ==
LOC: HO.HCC 09:55
PROVIDERS: PCP Nurse Practitioner Family
DX: F11.21 Opioid dependence, in remission (principal)